=== PATIENT | female | born 1970 | race African-American/Black ===

== ENCOUNTER 2020-06-15 04:39 | Inpatient (IN) | payer OTHER ==
[2020-06-11 17:29] VITALS: BMI 22.6
[2020-06-15] MEDS ORDERED: CEFAZOLIN 1 GM in DEXTROSE 5%-WATER - 50 ML IVPB ONE (07:00)
[2020-06-15] MEDS ORDERED: ROCURONIUM BROMIDE 50 MG/5 ML SYRINGE ONE (07:09)
[2020-06-15] MEDS ORDERED: fentaNYL CITRATE 250 MCG/5 ML VIAL ONE (07:09)
[2020-06-15] MEDS ORDERED: MIDAZOLAM HCL 2 MG/2 ML SINGLE DOSE VIAL ONE ×2 (07:10)
[2020-06-15] MEDS ORDERED: PROPOFOL 20 ML ONE (07:10)
[2020-06-15] MEDS ORDERED: SEVOFLURANE 250 ML BTL ONE (07:11)
[2020-06-15] MEDS ORDERED: BUPIVACAINE HCL/PF 0.25% (2.5MG/ML) 10 ML VIAL ONE (07:13)
[2020-06-15] MEDS ORDERED: BUPIVACAINE LIPOSOME/PF (EXPAREL) 266 MG/20 ML VIAL ONE (07:13)
[2020-06-15] MEDS ORDERED: ceFAZolin SODIUM 1 GM VIAL ONE ×2 (07:21→08:29)
[2020-06-15] MEDS ORDERED: HEPARIN NA (PORCINE) 5,000 UNITS/ML 1ML VIAL ONE (07:25)
--- NOTE | 2020-06-15 07:50 | HP ---
History & Physical Update - History History: No Change - Physical Physical: No Change - Assessment Assessment: No Change - Plan Plan: No Change (No change in HP)
[2020-06-15] MEDS ORDERED: ceFAZolin 2 GRAM PREMIX BAG IVPB ONE (08:20)
[2020-06-15] MEDS ORDERED: DEXAMETHASONE SOD PHOSPHATE 4 MG/1 ML VIAL ONE (08:29)
[2020-06-15] MEDS ORDERED: GLYCOPYRROLATE 0.2 MG/1 ML VIAL ONE (09:48)
[2020-06-15] MEDS ORDERED: NEOSTIGMINE METHYLSULFATE 0.5 MG/ML - 10 ML MDV ONE (09:48)
[2020-06-15] MEDS ORDERED: ONDANSETRON 4 MG/2 ML VIAL IVPUSH PRN ×5 (10:00→12:34)
[2020-06-15] MEDS ORDERED: SIMETHICONE 80 MG TAB.CHEW (FP) PO PRN ×3 (10:00→12:34)
[2020-06-15] MEDS ORDERED: BISACODYL 5 MG TABLET.DR (FP) PO PRN ×3 (10:00→12:34)
[2020-06-15] MEDS ORDERED: CEFAZOLIN 1 GM/D5W 1 GM/50 ML BAG IVPB SCH ×3 (10:00→18:00)
[2020-06-15] MEDS ORDERED: oxyCODONE HCL 5 MG TABLET PO PRN ×6 (10:00→12:34)
[2020-06-15] MEDS ORDERED: ACETAMINOPHEN 325 MG TABLET (FP) PO PRN ×2 (10:00→11:44)
[2020-06-15] MEDS ORDERED: IBUPROFEN 800 MG/8 ML IJ IVPB PRN ×2 (10:00→11:44)
[2020-06-15] MEDS ORDERED: DOCUSATE SODIUM 100 MG CAPSULE (FP) PO PRN ×3 (10:00→12:34)
[2020-06-15] MEDS ORDERED: LACTATED RINGERS SOLUTION 1,000 ML IV SCH (10:30)
--- NOTE | 2020-06-15 10:31 | OP ---
Operative Note - Note: Operative Date: 06/15/20 Pre-Operative Diagnosis: Leiomyomas Operation: Open abdominal myomectomy Post-Operative Diagnosis: Same as Pre-op Surgeon: Neha Galdamez Machine Brusher: Denia Ash Anesthesiologist/TUMBLE TAILSTOCK TURRET LATHE OPERATOR: Neela Crump Anesthesia: General Specimens Removed: removal of multiple leiomyomas: 10cm anterior, 5cm fundus, 2cm submucosal, 2cm bilateral subserosal Estimated Blood Loss (mls): 500 (ml) Drains, Volume Out (mls): 250 (ml yellow urine) Blood Volume Replaced (mls): 250 (ml cell saver) Fluid Volume Replaced (mls): 1,300 (ml lr) Operative Report Dictated: Yes
[2020-06-15] MEDS: HYDROmorphone HCL CARPU-JECT 2 MG/1 ML DISP.SYRIN IVPUSH PRN ×4 (10:32→11:02)
[2020-06-15] MEDS ORDERED: HYDROmorphone HCl 2 MG/ML VIAL ONE (10:32)
--- NOTE | 2020-06-15 10:32 | SURG ---
Surgery Six Sigma Black Trainer Note Six Sigma Black Trainer: Denia Ash PA-C (Suzy) Date of Service: 06/15/20 Diagnosis: Leiomyomas Procedure: Operation: Open abdominal myomectomy I was present for the entirety of the operative procedure. For further detail, please refer to operative report. Visit type - Case Type Case Type: Scheduled - Emergency Emergency Visit: No - New patient This patient is new to me today: Yes Date on this admission: 06/15/20 - Critical Care Critical Care patient: No
[2020-06-15] MEDS ORDERED: LACTATED RINGERS SOLUTION 1,000 ML/1,000 ML INFUS.BAG IV SCH (11:45)
[2020-06-15] MEDS: IBUPROFEN 800 MG/8 ML IJ IVPB PRN ×2 (15:29→22:36)
[2020-06-15] MEDS: LACTATED RINGERS SOLUTION 1,000 ML IV SCH (15:30)
[2020-06-15] MEDS: CEFAZOLIN 1 GM/D5W 1 GM/50 ML BAG IVPB SCH (18:18)
[2020-06-15 19:41] LABS: HEMATOCRIT 38.5 % (32.4-45.2); HEMOGLOBIN 12.7 GM/dL (10.7-15.3); MCH 30.9 pg (25.7-33.7); MCHC 32.9 g/dl (32.0-36.0); MEAN CELL VOLUME 93.9 fl (80-96); MEAN PLT VOLUME 10.2 fl (7.5-11.1); PLATELET COUNT 149 K/MM3 (134-434); RDW 14.2 % (11.6-15.6); WHITE BLOOD COUNT 12.1 K/mm3 (4.0-10.0)
[2020-06-15 20:05] LABS: CALCIUM 7.9 mg/dL (8.5-10.1); CREATININE 0.7 mg/dL (0.55-1.3); POTASSIUM 4.4 mmol/L (3.5-5.1)
[2020-06-16] MEDS: CEFAZOLIN 1 GM/D5W 1 GM/50 ML BAG IVPB SCH ×2 (02:26→10:16)
[2020-06-16] MEDS: LACTATED RINGERS SOLUTION 1,000 ML IV SCH (02:26)
--- NOTE | 2020-06-16 08:08 | PN ---
Progress Note (short form) - Note Progress Note: Surgery: Pt with some nausea overnight, improved this am. Minimal vaginal bleeding. No CP or SOB Vital Signs Period Temp Pulse Resp BP Sys/Bill Pulse Ox Last 24 Hr 97.4 F-99.5 F 57-98 16-20 111-137/63-83 99-100 Osborn:950ml clear/yellow urine GEN: A&0x3, NAD CV: RRR Lungs; CTA b/l ABD: soft, mild inc tenderness. inc c/d/i LE: no calf tenderness or swelling noted b/l, SCDs in place Laboratory Tests 06/15/20 06/15/20 18:30 18:30 WBC 12.1 H Hgb 12.7 Hct 38.5 Plt Count 149 Sodium 138 Potassium 4.4 Chloride 107 Carbon Dioxide 22 Anion Gap 10 BUN 8.0 Creatinine 0.7 A/p: 49 yo female s/p open abd myomectomy, POD#1 Clears as tolerated OOB ambulate Labs pending cbc/chem Pain medication as needed DVT ppx with SCDs/ambulate and lovenox Osborn removal today D/w Dr. Galdamez
[2020-06-16] MEDS: IBUPROFEN 800 MG/8 ML IJ IVPB PRN (08:11)
[2020-06-16 08:14] LABS: BLOOD UREA NITROGEN 8.4 mg/dL (7-18); CREATININE 0.6 mg/dL (0.55-1.3); POTASSIUM 4.1 mmol/L (3.5-5.1)
--- NOTE | 2020-06-16 08:24 | OP ---
DATE OF OPERATION: 06/15/2020 PREOPERATIVE DIAGNOSIS: Leiomyomatous uterus. OPERATION: Abdominal myomectomy. POSTOPERATIVE DIAGNOSIS: Leiomyomatous uterus. SURGEON: Neha Galdamez MD OPERATORS TEACHER: BERNADETTE Sales ANESTHESIOLOGIST: HEMAL Deluna ANESTHESIA: General. SPECIMEN REMOVED: Multiple myomas, a 10-cm anterior, 5-cm fundal, and 2-cm submucosal as well as 2 bilateral subserosal myomas. ESTIMATED BLOOD LOSS: mL. PREOP: Pt expressed wanting an abdominal myomectomy and not a hysterectomy if possible PROCEDURE: Patient was taken to operating room placed in a supine position. General anesthesia induced, pt was prepped and draped in the usual sterile fashion. Pfannenstiel skin incision was made with scalpel and cautery was used to go through layers of abdominal wall. The rectus muscle was cut transversely as well as the peritoneum was also cut transversely. A large leiomyomatous uterus was removed and noted to be tense with a 10-cm to 11-cm fundal myoma and a 5-cm anterior myoma. Noted to be also some submucosal myomas as well as other subserosal ones. The tourniquet was placed in a clear space of the broad ligament. Pitressin was infiltrated into the serosa of the uterus. A circumferential incision was made around the pedunculated 10- to 11-cm myoma, and myoma was then removed using sharp technique. The uterus was then closed in layers, continuous and locking using 1 Vicryl suture, and then, serosa was then closed using 2-0 V-Loc suture in a continuous fashion. Hemostasis was achieved. Anterior myoma was then removed, approximately 5 cm anteriorly. Pitressin was infiltrated, and cautery was then used to enter the anterior aspect of the uterus. A 5-cm myoma was removed. Another 2-cm myoma was also removed in approximately the submucosal area and was enucleated out. All specimens were submitted for pathology. The anterior aspect of the uterus was then closed in a continuous locking fashion and imbricating fashion using 2-0 V- Loc suture. Attention was then drawn to the serosal ones on the uterus. They were removed using sharp technique using cautery. V-Loc suture was then used to close the serosa of those myomas. Hemostasis was achieved. Interceed was placed on all incisions. Cell Saver was done, and patient had a blood loss of 500 mL and 250cc of the Cell Saver was given to patient. Hemostasis was achieved. Uterus interiorized. Abdominal cavity cleaned with clean lap pads. The peritoneum was closed in a transverse fashion, continuous, and the muscle was approximated using 0 Vicryl suture. Subcutaneous was closed in layers using 2-0 Vicryl suture, and skin was then closed using 3-0 Vicryl in subcuticular fashion. Wound was washed and dressed. Patient tolerated procedure well and was taken to the recovery room in stable condition. Segundo DE [id number]
--- NOTE | 2020-06-16 08:30 | PN ---
Progress Note (short form) - Note Progress Note: POD #1 s/p abdominal myomectomy under GA with bilateral TAP blocks. Doing well, pain controlled with current medications, denies n/v. All questions answered.
[2020-06-16 08:48] LABS: HEMATOCRIT 30.4 % (32.4-45.2); HEMOGLOBIN 10.2 GM/dL (10.7-15.3); MCH 30.8 pg (25.7-33.7); MCHC 33.5 g/dl (32.0-36.0); MEAN CELL VOLUME 92.2 fl (80-96); MEAN PLT VOLUME 9.9 fl (7.5-11.1); PLATELET COUNT 136 K/MM3 (134-434); RDW 14.1 % (11.6-15.6); WHITE BLOOD COUNT 9.2 K/mm3 (4.0-10.0)
[2020-06-16] MEDS ORDERED: ENOXAPARIN NA (PORCINE) 40 MG/0.4 ML DISP.SYRIN SQ SCH ×3 (10:00)
--- NOTE | 2020-06-16 14:02 | RAPID ---
<Divine Singh - Last Filed: 06/16/20 14:15> Physical Examination Vital Signs: 98.7 HR 114 RR 18 BP 104/65 O2 99% Upon leaving room HR was down to 100 BMP Constitutional: Yes: Diaphoresis, Mild Distress Cardiovascular: Yes: Tachycardia Respiratory: Yes: CTA Bilaterally Gastrointestinal: Yes: Hematemesis Edema: No Labs: CBC, BMP 06/16/20 07:21 06/16/20 07:21 Rapid Response - Rapid Response Assessment: RR called at 9:38. FILM OR TAPE LIBRARIAN showed up within 2 minutes. Patient had witnessed syncopal event after getting at of bed with her nurse. Patient started to feel light headed & became diaphoretic and RR was called When team got to the room the patient was getting back into bed. Vitals were taken. She was tachycardic, responsive, no SOB. Patient just felt a little light headed still but in bed reported feeling better already. PO day 1 from abdominal myomectomy. This was patient's first time OOB since surgery. PE: General: diaphoertic Cariac: tachy, regular rhythm Lungs: CTA BL Abdomen: tender subprapubic area Legs: No edema BL Laboratory Last Values WBC 9.2 K/mm3 (4.0-10.0) 06/16/20 07:21 RBC 3.30 M/mm3 (3.60-5.2) L 06/16/20 07:21 Hgb 10.2 GM/dL (10.7-15.3) L 06/16/20 07:21 Hct 30.4 % (32.4-45.2) L D 06/16/20 07:21 MCV 92.2 fl (80-96) 06/16/20 07:21 MCH 30.8 pg (25.7-33.7) 06/16/20 07:21 MCHC 33.5 g/dl (32.0-36.0) 06/16/20 07:21 RDW 14.1 % (11.6-15.6) 06/16/20 07:21 Plt Count 136 K/MM3 (134-434) 06/16/20 07:21 MPV 9.9 fl (7.5-11.1) 06/16/20 07:21 Sodium 139 mmol/L (136-145) 06/16/20 07:21 Potassium 4.1 mmol/L (3.5-5.1) 06/16/20 07:21 Chloride 107 mmol/L (98-107) 06/16/20 07:21 Carbon Dioxide 25 mmol/L (21-32) 06/16/20 07:21 Anion Gap 7 MMOL/L (8-16) L 06/16/20 07:21 BUN 8.4 mg/dL (7-18) 06/16/20 07:21 Creatinine 0.6 mg/dL (0.55-1.3) 06/16/20 07:21 Est GFR (CKD-EPI)AfAm 122.32 06/16/20 07:21 Est GFR (CKD-EPI)NonAf 105.54 06/16/20 07:21 POC Glucometer 174 UNITS (80-120) 06/16/20 09:47 Random Glucose 132 mg/dL (74-106) H 06/16/20 07:21 Calcium 8.0 mg/dL (8.5-10.1) L 06/16/20 07:21 Serum , Qual Negative 06/15/20 06:15 Blood Type O POSITIVE 06/16/20 08:32 Antibody Screen Negative 06/16/20 08:32 Assessment/Plan Orthostatic hypotension - patient post op day 1 abdominal myomectomy - hbg/hct stable - BGM 174 - light headed and tachy after getting up walking to bathroom - patient better with rest - Continue fluids, OOB with assistance - no further work up at this time <Dolly Miranda - Last Filed: 07/07/20 21:03> Physical Examination Vital Signs: Vital Signs Temperature 98.6 F 06/22/20 13:01 Pulse Rate 92 H 06/22/20 13:01 Respiratory Rate 18 06/22/20 13:01 Blood Pressure 112/78 06/22/20 13:01 O2 Sat by Pulse Oximetry (%) 99 06/22/20 13:01 Labs: CBC, BMP 06/21/20 17:25 06/20/20 05:35 Critical Care Total Critical Care Time (in minutes): 30 Critical Care Statement: The care of this patient involved high complexity decision making to prevent further life threatening deterioration of the patient's condition and/or to evaluate & treat vital organ system(s) failure or risk of failure.
[2020-06-16] MEDS: ACETAMINOPHEN 325 MG TABLET (FP) PO PRN ×2 (15:55→21:24)
--- NOTE | 2020-06-16 16:38 | PN ---
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 States when she went to get up from the commode she felt extremely dizzy/light- headed/weak. RN notified for help and notes states patient became diaphoretic. Helped patient back to her bed and called for a Rapid Response at 09:38AM. She is responsive per notes. Vitals taken at that time noted to be tachycardic. Denied CP, palpitations, SOB or HILL prior too or post event. Called by patient's RN as she is now c/o substernal chest pain radiating to LUE after being administered oral pain medication. 16:15hrs Patient supine in bed. Not in any distress. Endorses substernal CP (not reproducible), radiates to left shoulder. Denies n/v, diaphoresis, palpitations, SOB or HILL. Last Vital Signs Temp Pulse Resp BP Pulse Ox 99.0 F 107 H 18 111/74 99 06/16/20 13:57 06/16/20 16:03 06/16/20 16:03 06/16/20 16:03 06/16/20 16:03 A/P: POD #1 s/p open abd myomectomy; Witnessed syncopal episode earlier today; now c/o substernal CP radiating to left shoulder. 1. STAT: EKG, Cardiac Enzymes, CBC 2. Cardio consult - Dr. Robison 3. Medicine consult - Dr. Mace 4. Dr. Galdamez made aware and agrees with above plan
--- NOTE | 2020-06-16 17:25 | PN ---
Teaching Attending Note Name of Resident: Jamaal Hawthorne ATTENDING PHYSICIAN STATEMENT I saw and evaluated the patient. I reviewed the resident's note and discussed the case with the resident. I agree with the resident's findings and plan as documented. SUBJECTIVE: We were requested by Surgery service to see this 49 year old AAF with no sign ificant past medical history who is sp open abdominal myomectomy for leiomyomas for evaluation of chest pains. Patient reports she was seated next to her bed when she developed sudden onset left sided chest pains with radiation to the left arm, described as sharp, 9/10 in intensity and lasting about 20 minutes and after which, slowly faded away. She denied diaphoresis, nausea nor vomiting. She has not had any experience like this prior to this event On evaluation of EKG, there are T wave inversions in the anterior leads from V1- V4, previously not seen on preop EKG OBJECTIVE: Gen appears comfortable neck; supple HEENT: EOMO Chest: clear to auscultation CVS: RRR abd: soft, minimal bowel sounds, slightly distended but not taut. Negative fluid wave. Exam limited by tenderness Ext; no edema, feet are warm and dry pooling operator; no motor nor sensory deficit ASSESSMENT AND PLAN: 1. Chest pains - on review of labs, hct dropped from 38 to 30 - may be from acute blood loss - EKG with change as above - will need remote telemetry monitoring or tele bed for continuous cardiac monitoring - serial troponins - echocardiogram - cardiology consultation in the am (Dr Robison already informed of consu ltation by surgery service) - repeat hct in am 2. DVT prophylaxis - SCDs and also wearing enrique hoses 3. Patient is Gnosticism Thank you for the oppportunity to participate in the care of this patient. We will follow along. DW Dr Hawthorne. Agree with exam, history, plans of care
[2020-06-16 17:39] LABS: HEMATOCRIT 27.6 % (32.4-45.2); HEMOGLOBIN 9.4 GM/dL (10.7-15.3); MCH 31.6 pg (25.7-33.7); MCHC 33.9 g/dl (32.0-36.0); MEAN CELL VOLUME 93.1 fl (80-96); MEAN PLT VOLUME 9.5 fl (7.5-11.1); PLATELET COUNT 125 K/MM3 (134-434); RBC 2.97 M/mm3 (3.60-5.2); RDW 14.2 % (11.6-15.6); WHITE BLOOD COUNT 9.5 K/mm3 (4.0-10.0)
--- NOTE | 2020-06-16 18:03 | HOSP ---
Subjective - Review of Symptoms Events since last encounter: 49F w/ no reported PMH, is POD#1 for open myometcomy(Denice 06/16/20) w/ EBL 500ml. [facility] consulted for chest pain w/u. Pt reported Left shoulder pain that was sharp in nature, radiating behind the breast at ~4pm, while at sitting in her chair, shortly after taking medications(colace, acetaminophen). Pain lasted ~20mins, with 10mins of rapid breathing; describing as trouble catching her breath. This lasted 10mins. Denies chest pressure, palpitations. Has not had simliar symptoms in the past. Prior to surgery, had regular home exercise, doing 30mins of body squats, bands, and jogging in place. Never smoked. Never had IA, stroke, cardiac cath. Mother has diabetes(on ACTOS). No FH of cardiac disease. General: No: Fatigue HEENT: No: Head Aches Pulmonary: No: Dyspnea, Cough, Pleuritic Chest Pain Cardiovascular: No: Chest Pain, Palpitations, Light Headedness Gastrointestinal: No: Vomiting, Abdominal Pain, Diarrhea, Constipation Musculoskeletal: No: Back Pain Neurological: No: Weakness, Numbness Physical Examination Vital Signs: Vital Signs Temperature 99.0 F 06/16/20 13:57 Pulse Rate 107 H 06/16/20 16:03 Respiratory Rate 18 06/16/20 16:03 Blood Pressure 111/74 06/16/20 16:03 O2 Sat by Pulse Oximetry (%) 99 06/16/20 16:03 Constitutional: Yes: Well Nourished, No Distress Eyes: Yes: Conjunctiva Clear (pale conjunctiva) HENT: Yes: WNL, Atraumatic, Normocephalic Neck: Yes: WNL, Supple, Trachea Midline, Other (no JVD) Cardiovascular: Yes: Tachycardia, S1, S2. No: Murmur Respiratory: Yes: Regular, CTA Bilaterally. No: Accessory Muscle Use Gastrointestinal: Yes: Soft, Tenderness (over lower transverse abdominal incision). No: Distention Extremities: Yes: Other (normal PROM, AROM. No tenderness over should muscles or bony prominences) Edema: No Peripheral Pulses: Left Doralis Pedis: 2+, Right Dorsalis Pedis: 2+ Wound/Incision: Yes: Dressing Dry and Intact Neurological: Yes: Alert, Oriented, Cran Nerves II-XII Intact ...Motor Strength: WNL Labs: CBC, BMP 06/16/20 17:00 Hospitalist Encounter Assessment: 49F w/ no significant PMH, has shoulder pain and SOB on POD#1 of open myomectomy. Patient refusing blood for personal reasons. [facility] consulted for Chest Pain workup. #atypical chest pain --unlikely ACS > HEART 2 > EKG(06/16/20): TWI of V1 -V4, no BRANDIE; HR 103, QTc 424 > rpt EKG for 06/17 - recommend transfer for Telemetry monitoring - recommend Echo - troponin --pending - Cardio recs: --pending #acute blood loss anemia --likely 2/2 surgical blood loss > H/H: 15.2/46.2([facility] pre-op from 06/08/20), 12.7/38.5, 10.2/30.4, 9.4/27.6 - monitor morning CBC Visit type - Emergency Visit Emergency Visit: No - New Patient This patient is new to me today: Yes Date on this admission: 06/16/20 - Critical Care Critical Care patient: No
[2020-06-16 18:15] LABS: ANION GAP 8 MMOL/L (8-16); CALCIUM 8.2 mg/dL (8.5-10.1); CHLORIDE 107 mmol/L (98-107); CO2 25 mmol/L (21-32); CREATININE 0.6 mg/dL (0.55-1.3); GLUCOSE,RANDOM 120 mg/dL (74-106); PHOSPHOROUS 1.7 mg/dL (2.5-4.9); POTASSIUM 3.8 mmol/L (3.5-5.1); SODIUM 140 mmol/L (136-145)
[2020-06-16] MEDS: NAPH,MB-DB/K PH,MBDB POWDER PACKET PO SCH (21:24)
--- NOTE | 2020-06-17 05:34 | CON.CARD ---
Consult Consult Specialty:: cardiology Reason for Consultation:: lightheadedness; chest pain; new EKG changes - History of Present Illness Chief Complaint: Pt A&Ox3; no further chest pain or dizziness. History of Present Illness: Ms. Feliciano is a 49 yr old woman with no known significant PMHx is now transferred to telemetry after developing lightheadedness followed by sharp chest pain after undergoing open abdominal myomectomy for leiomyoma today. Hb was noted to have decreased from 12.7 to 9.4. Pt was exercising regularly prior to the surgery, and denies having had chest pain before. No hx cigarettes. - History Source History Provided By: Patient, Medical Record Limitations to Obtaining History: No Limitations - Past Medical History ...LMP: 05/05/20 Heme/Onc: Yes: Anemia - Alcohol/Substance Use Hx Alcohol Use: Yes (SOCIALLY) - Smoking History Smoking history: Never smoked Have you smoked in the past 12 months: No Home Medications - Allergies Allergies/Adverse Reactions: Allergies Allergy/AdvReac Type Severity Reaction Status Date / Time clindamycin Allergy Intermediate Verified 06/15/20 07:18 CLINDAMYCIN Allergy Intermediate COLITIS Uncoded 06/15/20 07:18 WHEAT GLUTEN Allergy Mild Uncoded 06/15/20 07:18 - Home Medications Home Medications: Ambulatory Orders Amoxicillin - [Amoxicillin 500mg Capsule -] 500 mg PO BID 06/11/20 Family Medical History Family History: Denies Review of Systems - Review of Systems Constitutional: reports: Weakness Eyes: reports: No Symptoms HENT: reports: No Symptoms Neck: reports: No Symptoms Cardiovascular: reports: Chest Pain Respiratory: reports: No Symptoms Gastrointestinal: reports: Abdominal Pain Genitourinary: reports: No Symptoms Breasts: reports: No Symptoms Reported Musculoskeletal: reports: Muscle Pain, Other Integumentary: reports: Incision Neurological: reports: No Symptoms Endocrine: reports: No Symptoms Hematology/Lymphatic: reports: Other (anemia post-op) Psychiatric: reports: No Symptoms - Risk Factors Known Risk Factors: Yes: Age, Race Vital Signs: Vital Signs Temperature 98.9 F 06/17/20 02:00 Pulse Rate 106 H 06/17/20 02:00 Respiratory Rate 18 06/17/20 02:00 Blood Pressure 105/59 L 06/17/20 02:00 O2 Sat by Pulse Oximetry (%) 100 06/17/20 02:00 Laboratory Results - last 24 hr 06/17/20 06/18/20 06/18/20 20:45 05:48 05:48 WBC 9.2 9.2 RBC 2.62 L 2.57 L Hgb 8.3 L 8.0 L Hct 24.4 L 23.6 L MCV 93.2 91.8 MCH 31.8 31.1 MCHC 34.2 33.9 RDW 13.6 13.5 Plt Count 105 L 111 L MPV 9.5 9.1 Sodium 141 Potassium 3.7 Chloride 108 H Carbon Dioxide 27 Anion Gap 7 L BUN 5.0 L Creatinine 0.5 L Est GFR (CKD-EPI)AfAm 129.88 Est GFR (CKD-EPI)NonAf 112.06 Random Glucose 93 Calcium 7.8 L Phosphorus 1.3 L Total Bilirubin 0.6 AST 46 H ALT 16 Alkaline Phosphatase 46 Total Protein 5.4 L Albumin 2.5 L Blood Type 06/18/20 10:48 WBC RBC Hgb Hct MCV MCH MCHC RDW Plt Count MPV Sodium Potassium Chloride Carbon Dioxide Anion Gap BUN Creatinine Est GFR (CKD-EPI)AfAm Est GFR (CKD-EPI)NonAf Random Glucose Calcium Phosphorus Total Bilirubin AST ALT Alkaline Phosphatase Total Protein Albumin Blood Type O POSITIVE Constitutional: Yes: Well Nourished Eyes: Yes: WNL HENT: Yes: WNL Neck: Yes: WNL Respiratory: Yes: WNL Gastrointestinal: Yes: WNL Renal/: Yes: WNL Cardiovascular: Yes: Tachycardia JVD: No Carotid Bruit: No PMI: Non-Displaced Heart Sounds: Yes: S1, S2 Musculoskeletal: Yes: Muscle Pain, Muscle Weakness Extremities: Yes: WNL Edema: No Peripheral Pulses WNL: Yes Integumentary: Yes: Incision Neurological: Yes: WNL ...Motor Strength: WNL Psychiatric: Yes: WNL - Other Data Labs, Other Data: CBC, BMP 06/16/20 17:00 06/16/20 17:00 Troponin, BNP 06/16/20 06/16/20 17:00 23:40 Troponin I < 0.02 < 0.02 Troponin, BNP 06/16/20 06/16/20 17:00 23:40 Troponin I < 0.02 < 0.02 Abnormal Lab Results 06/17/20 06/18/20 06/18/20 20:45 05:48 05:48 RBC 2.62 L 2.57 L Hgb 8.3 L 8.0 L Hct 24.4 L 23.6 L Plt Count 105 L 111 L Chloride 108 H Anion Gap 7 L BUN 5.0 L Creatinine 0.5 L Calcium 7.8 L Phosphorus 1.3 L AST 46 H Total Protein 5.4 L Albumin 2.5 L Echo: Pending Imaging - Results Chest X-ray: Image Reviewed EKG: Image Reviewed Assessment/Plan Lightheadedness and sharp chest pain post-myomectomy for leiomyoma acute anemia (Hb 12.7-->9.4) New EKG changes: sinus tachycardia; T wave inversions throughout precordial leads; r/o ischemia Hypocalcemia; hypophosphatemia TNI < 0.02 Plan: Transfer to telemetry Serial TNI and EKGs Hydration Pain management Correction of electrolytes TSH Lipids HGBA1c
[2020-06-17 07:15] LABS: BASO % 0.1 % (0-2.0); EOS % 0.3 % (0-4.5); HEMATOCRIT 22.1 % (32.4-45.2); HEMOGLOBIN 7.5 GM/dL (10.7-15.3); LYMPH % 12.8 % (8-40); MCH 31.2 pg (25.7-33.7); MCHC 34.1 g/dl (32.0-36.0); MEAN CELL VOLUME 91.5 fl (80-96); MEAN PLT VOLUME 9.8 fl (7.5-11.1); MONO % 11.8 % (3.8-10.2); PLATELET COUNT 112 K/MM3 (134-434); RBC 2.41 M/mm3 (3.60-5.2); RDW 14.1 % (11.6-15.6); WHITE BLOOD COUNT 8.4 K/mm3 (4.0-10.0)
[2020-06-17 07:32] LABS: CHOLESTEROL 119 mg/dL (50-200); HDL CHOLESTEROL 42 mg/dL (40-60); LDL CHOLESTEROL (ONLY SJRH) 57 mg/dL (5-100); TRIGLYCERIDES 68 mg/dL (0-150)
[2020-06-17 07:35] LABS: CALCIUM 7.8 mg/dL (8.5-10.1); CREATININE 0.5 mg/dL (0.55-1.3); POTASSIUM 3.5 mmol/L (3.5-5.1)
[2020-06-17] MEDS ORDERED: PT OWN MED DRAWER 7, Y5N ONE (09:20)
--- NOTE | 2020-06-17 09:21 | PN ---
Progress Note (short form) - Note Progress Note: POD 2, s/p open abdominal myomectomy Pt seen and examined. States she is doing well, continues to have L chest/left shoulder pain. Has not been oob. Tolerating small amounts of clear liquids. No BM, voiding without issue. Denies sob, n/v/d. Vital Signs Temp 99 F 06/17/20 06:00 Pulse 107 H 06/17/20 06:00 Resp 18 06/17/20 06:00 BP 102/58 L 06/17/20 06:00 Pulse Ox 98 06/17/20 06:00 Intake & Output 06/16/20 06/16/20 06/17/20 11:59 23:59 11:59 Intake Total 1500 Output Total 1200 1150 Balance 300 -1150 Intake: IV 1200 Lactated Ringers Solution 1200 1,000 ml @ 125 mls/hr IV ASDIR CURTIS Rx#: [id number] IVPB 300 Output: Urine 1200 1150 Osborn 400 Void 800 1150 Other: Voiding Method Bedpan Bedpan # Unmeasured Voids Void 1 1 Bowel Movement No No CBC, BMP 06/17/20 05:48 06/17/20 05:48 Gen: awake, alert, nad Resp: unlabored on RA Abdo: soft, minimally distended, + bowel sounds, incision c/d/i with steri- strips overlying, no erythema or drainage. A/P: 49 y/o F w/ PMhx leiomyomas now POD 2, s/p open abdominal myomectomy complicated by acute blood loss anemia. pt persistently tachy to 120s, hypotensive to low 100s, asx per pt. Hct continues to trend down, 22 currently Extensive conversation between pt and attending Dr Galdamez regarding current situation. Pt symptomatic from acute blood loss anemia (hct prior to surgery was 42-no h/o menorrhagia per pt) requiring transfer to telemetry unit due to syncope/chest pain. Options/risks/benefits discussed at length. Pt hesitant to receive blood transfusion for fear of transmission of communicable diseases. Blood screening and risks discussed with pt at length, pt verbalized understanding. Agrees to transfusion. Consent signed and placed on chart after risks discussed. Type and screen ordered (only 1 on file). -3 units pRBCs ordered -Lovenox d/c'ed will order heparin 5000units sq for tonight -pain control as ordered (pt very comfortable with current regimen) -Diet as tolerated -Continue to monitor vs -continue scds -bowel regimen -oob with assist only pt seen with attending Dr Galdamez
--- NOTE | 2020-06-17 09:23 | PN ---
Progress Note, Physician History of Present Illness: Ms. Feliciano is a 49 yr old woman with no known significant PMHx is now transferred to telemetry after developing lightheadedness followed by sharp chest pain after undergoing open abdominal myomectomy for leiomyoma today. Hb was noted to have decreased from 12.7 to 9.4. Pt was exercising regularly prior to the surgery, and denies having had chest pain before. No hx cigarettes. - Current Medication List Current Medications: Active Medications Acetaminophen (Tylenol -) 650 mg PO Q4H PRN PRN Reason: FEVER Last Admin: 06/16/20 21:24 Dose: 650 mg Documented by: Ascorbic Acid (Vitamin C -) 250 mg PO DAILY [facility] Bisacodyl (Dulcolax -) 10 mg PO ONCE PRN PRN Reason: CONSTIPATION Last Admin: 06/16/20 14:18 Dose: 10 mg Documented by: Docusate Sodium (Colace -) 100 mg PO TID PRN PRN Reason: CONSTIPATION Last Admin: 06/16/20 15:55 Dose: 100 mg Documented by: Ferrous Sulfate (Feosol -) 325 mg PO DAILY [facility] Lactated Ringer's (Lactated Ringers Solution) 1,000 mls @ 125 mls/hr IV ASDIR [facility] Last Admin: 06/16/20 02:26 Dose: 125 mls/hr Documented by: Ondansetron HCl (Zofran Injection) 4 mg IVPUSH Q4H PRN PRN Reason: NAUSEA AND/OR VOMITING Last Admin: 06/15/20 22:01 Dose: 4 mg Documented by: Ondansetron HCl (Zofran Injection) 4 mg IVPUSH Q6H PRN PRN Reason: NAUSEA AND/OR VOMITING Oxycodone HCl (Roxicodone -) 5 mg PO Q4H PRN PRN Reason: PAIN LEVEL 1-5 Oxycodone HCl (Roxicodone -) 10 mg PO Q4H PRN PRN Reason: PAIN LEVEL 6-10 Potassium Phos/Sodium Phos (Phos-Nak Packet -) 1 packet PO BID [facility] Stop: 06/17/20 10:01 Last Admin: 06/16/20 21:24 Dose: 1 packet Documented by: Potassium Phos/Sodium Phos (Phos-Nak Packet -) 1 packet PO DAILY [facility] Simethicone (Mylicon -) 80 mg PO Q4H PRN PRN Reason: GAS - Objective Vital Signs: Vital Signs Temperature 99 F 06/17/20 06:00 Pulse Rate 107 H 06/17/20 06:00 Respiratory Rate 18 06/17/20 06:00 Blood Pressure 102/58 L 06/17/20 06:00 O2 Sat by Pulse Oximetry (%) 98 06/17/20 06:00 Eyes: Yes: WNL, Conjunctiva Clear, EOM Intact HENT: Yes: WNL, Atraumatic, Normocephalic Neck: Yes: WNL, Supple, Trachea Midline Cardiovascular: Yes: WNL, Regular Rate and Rhythm Respiratory: Yes: WNL, Regular, CTA Bilaterally Gastrointestinal: Yes: WNL, Normal Bowel Sounds Genitourinary: Yes: WNL Musculoskeletal: Yes: WNL Extremities: Yes: WNL Edema: No Integumentary: Yes: WNL Neurological: Yes: WNL, Alert, Oriented ...Motor Strength: WNL Psychiatric: Yes: WNL Labs: CBC, BMP 06/17/20 05:48 06/17/20 05:48 Assessment/Plan Lightheadedness and sharp chest pain post-myomectomy for leiomyoma acute anemia (Hb 12.7-->9.4) New EKG changes: sinus tachycardia; T wave inversions throughout precordial leads; r/o ischemia Hypocalcemia; hypophosphatemia TNI < 0.02 ECHO nl EF Plan: PRBC Serial TNI and EKGs Hydration Pain management Correction of electrolytes TSH Lipids HGBA1c MIBI stress test prior to discharge
[2020-06-17] MEDS: ASCORBIC ACID 250 MG TABLET (FP) PO SCH (09:39)
[2020-06-17] MEDS: FERROUS SO4 325 MG TABLET (FP) PO SCH (09:39)
[2020-06-17] MEDS: NAPH,MB-DB/K PH,MBDB POWDER PACKET PO SCH ×2 (09:39→17:43)
[2020-06-17] MEDS: LACTATED RINGERS SOLUTION 1,000 ML IV SCH ×2 (09:39→19:00)
[2020-06-17] MEDS ORDERED: DOCUSATE SODIUM 100 MG CAPSULE (FP) PO PRN (10:02)
[2020-06-17] MEDS ORDERED: ONDANSETRON 4 MG/2 ML VIAL IVPUSH PRN ×2 (10:02)
[2020-06-17] MEDS ORDERED: SIMETHICONE 80 MG TAB.CHEW (FP) PO PRN (10:02)
[2020-06-17] MEDS ORDERED: oxyCODONE HCL 5 MG TABLET PO PRN ×2 (10:02)
[2020-06-17] MEDS ORDERED: ACETAMINOPHEN 325 MG TABLET (FP) PO PRN (10:02)
[2020-06-17] MEDS ORDERED: BISACODYL 5 MG TABLET.DR (FP) PO PRN (10:02)
--- NOTE | 2020-06-17 13:15 | PN ---
Physical Exam: SUBJECTIVE: Patient seen and examined at bedside POD#2 s/p open abdominal myomectomy Patient found to have chest pain and underwent full ischemic heart work up. H/H low and we recommend transfusion of PRBC. Patient agrees to receiving PRBC OBJECTIVE: Vital Signs Period Temp Pulse Resp BP Sys/Bill Pulse Ox Last 24 Hr 98.8 F-99.0 F 94-107 18-18 102-114/58-76 98-100 GENERAL: The patient is awake, alert, and fully oriented, in no acute distress. LUNGS: Breath sounds equal, clear to auscultation bilaterally, no wheezes, no crackles, no accessory muscle use. HEART: Regular rate and rhythm, S1, S2 without murmur, rub or gallop. ABDOMEN: Soft, with bowel sounds in all 4 quadrants, transverse abdominal incision bandage noted EXTREMITIES: 2+ pulses, warm, well-perfused, no edema. SKIN: Warm, dry, normal turgor, no rashes or lesions noted Laboratory Results - last 24 hr 06/16/20 06/16/20 06/16/20 08:32 17:00 17:00 WBC 9.5 RBC 2.97 L Hgb 9.4 L Hct 27.6 L MCV 93.1 MCH 31.6 MCHC 33.9 RDW 14.2 Plt Count 125 L MPV 9.5 Absolute Neuts (auto) Neutrophils % Lymphocytes % Monocytes % Eosinophils % Basophils % Nucleated RBC % Sodium 140 Potassium 3.8 Chloride 107 Carbon Dioxide 25 Anion Gap 8 BUN 7.0 Creatinine 0.6 Est GFR (CKD-EPI)AfAm 122.32 Est GFR (CKD-EPI)NonAf 105.54 Random Glucose 120 H Hemoglobin A1c % Calcium 8.2 L Phosphorus 1.7 L Magnesium 2.0 Creatine Kinase 1393 H Creatine Kinase Index No Result Required. CK-MB (CK-2) < 1.0 Troponin I < 0.02 Triglycerides Cholesterol Total LDL Cholesterol HDL Cholesterol TSH Thyroxine (T4) Blood Type O POSITIVE Antibody Screen Negative Crossmatch See Detail 06/16/20 06/17/20 06/17/20 23:40 05:48 05:48 WBC RBC Hgb Hct MCV MCH MCHC RDW Plt Count MPV Absolute Neuts (auto) Neutrophils % Lymphocytes % Monocytes % Eosinophils % Basophils % Nucleated RBC % Sodium 140 Potassium 3.5 Chloride 107 Carbon Dioxide 27 Anion Gap 6 L BUN 7.0 Creatinine 0.5 L Est GFR (CKD-EPI)AfAm 129.88 Est GFR (CKD-EPI)NonAf 112.06 Random Glucose 95 Hemoglobin A1c % Calcium 7.8 L Phosphorus 2.0 L Magnesium 2.0 Creatine Kinase 1362 H Creatine Kinase Index No Result Required. CK-MB (CK-2) < 1.0 Troponin I < 0.02 < 0.02 Triglycerides 68 Cholesterol 119 Total LDL Cholesterol 57 HDL Cholesterol 42 TSH 0.25 L Thyroxine (T4) 9.4 Blood Type Antibody Screen Crossmatch 06/17/20 06/17/20 05:48 05:48 WBC 8.4 RBC 2.41 L Hgb 7.5 L Hct 22.1 L D MCV 91.5 MCH 31.2 MCHC 34.1 RDW 14.1 Plt Count 112 L MPV 9.8 Absolute Neuts (auto) 6.3 Neutrophils % 75.0 Lymphocytes % 12.8 Monocytes % 11.8 H Eosinophils % 0.3 Basophils % 0.1 Nucleated RBC % 0 Sodium Potassium Chloride Carbon Dioxide Anion Gap BUN Creatinine Est GFR (CKD-EPI)AfAm Est GFR (CKD-EPI)NonAf Random Glucose Hemoglobin A1c % < 3.5 L Calcium Phosphorus Magnesium Creatine Kinase Creatine Kinase Index CK-MB (CK-2) Troponin I Triglycerides Cholesterol Total LDL Cholesterol HDL Cholesterol TSH Thyroxine (T4) Blood Type Antibody Screen Crossmatch Active Medications Generic Name Dose Route Start Last Admin Trade Name Freq PRN Reason Stop Dose Admin Acetaminophen 650 mg 06/17/20 10:02 Tylenol - PO Q4H PRN FEVER Ascorbic Acid 250 mg 06/17/20 10:00 06/17/20 09:39 Vitamin C - PO 250 mg DAILY [facility] Administration Bisacodyl 10 mg 06/17/20 10:02 Dulcolax - PO ONCE PRN CONSTIPATION Docusate Sodium 100 mg 06/17/20 10:02 Colace - PO TID PRN CONSTIPATION Ferrous Sulfate 325 mg 06/17/20 10:00 06/17/20 09:39 Feosol - PO 325 mg DAILY [facility] Administration Lactated Ringer's 1,000 mls @ 125 mls/hr 06/17/20 09:24 06/17/20 09:39 Lactated Ringers Solution IV 125 mls/hr ASDIR [facility] Administration Ondansetron HCl 4 mg 06/17/20 10:02 Zofran Injection IVPUSH Q4H PRN NAUSEA AND/OR VOMITING Ondansetron HCl 4 mg 06/17/20 10:02 Zofran Injection IVPUSH Q6H PRN NAUSEA AND/OR VOMITING Oxycodone HCl 5 mg 06/17/20 10:02 Roxicodone - PO Q4H PRN PAIN LEVEL 1-5 Oxycodone HCl 10 mg 06/17/20 10:02 Roxicodone - PO Q4H PRN PAIN LEVEL 6-10 Potassium Phos/Sodium Phos 1 packet 06/17/20 16:00 Phos-Nak Packet - PO DAILY [facility] Simethicone 80 mg 06/17/20 10:02 Mylicon - PO Q4H PRN GAS ASSESSMENT/PLAN: Ms. Braden Hart is a 49F consulted for a cardiac workup for chest pain after myomectomy procedure. #Chest Pain - r/o ACS as cause of chest pain - negative trops x3 - Serial EKG negative for ischemic changes - recommend outpatient echo for further cardiac work up - Telemetry monitoring - likely a result of blood loss - Recommendations for blood transfusions to baseline H/H - will follow H/H - Cardiology on board - appreciate the recommendations #Anemia: - blood loss anemia - recommendations of PRBC x1 - follow H/H - Follow calcium levels as prbc contain citrate which, in turn, would bind calcium ions in the serum Visit type - Emergency Visit Emergency Visit: No - New Patient This patient is new to me today: Yes Date on this admission: 06/17/20 - Critical Care Critical Care patient: No - Discharge Referral Referred to [facility] Med P.C.: No ATTENDING PHYSICIAN STATEMENT I saw and evaluated the patient. I reviewed the resident's note and discussed the case with the resident. I agree with the resident's findings and plan as documented. SUBJECTIVE: OBJECTIVE: ASSESSMENT AND PLAN:
--- NOTE | 2020-06-17 13:44 | PN ---
Teaching Attending Note Name of Resident: Leoncio Valdes ATTENDING PHYSICIAN STATEMENT I saw and evaluated the patient. I reviewed the resident's note and discussed the case with the resident. I agree with the resident's findings and plan as documented. SUBJECTIVE: Patient states she feels well, no longer with any chest discomfort She is fixated on having her Hb rechecked so she can avoid blood transfusion and possibly go home OBJECTIVE: Vital Signs Period Temp Pulse Resp BP Sys/Bill Pulse Ox Last 24 Hr 98.8 F-99.0 F 94-107 18-18 102-114/58-76 98-100 GENERAL: Awake, alert, No distress. HEAD: Normal with no signs of trauma. EYES: Pupils equal, round and reactive to light, extraocular movements intact, sclera anicteric, conjunctiva clear. No lid lag. EARS, NOSE, THROAT: Ears normal, nares patent, oropharynx clear without exudates. Moist mucous membranes. NECK: Normal range of motion, No JVD LUNGS: Breath sounds equal, clear to auscultation bilaterally. No wheezes, and no crackles. No accessory muscle use. HEART: Regular rate and rhythm, normal S1 and S2 without murmur, rub or gallop. ABDOMEN: Soft, BS+, Bandage noted from surgical incision MUSCULOSKELETAL: Normal range of motion at all joints. No bony deformities or tenderness. No CVA tenderness. NEUROLOGICAL: Cranial nerves II-XII intact. Normal speech. PSYCHIATRIC: Cooperative. Good eye contact. Appropriate mood and affect. SKIN: Warm, dry, normal turgor, no rashes or lesions noted. ASSESSMENT AND PLAN: 49 y/o F who presents for myomectomy s/p OR. Medicine consulted for Chest pain Chest Pain: Unlikely ACS: Troponin Negative, no signs of acute ischemia on EKG Continue tele monitor Can consider outpatient Echo--defer to Cardiology recs Can be due to recent blood loss anemia, transfuse as noted below. Anemia: Likely in setting of blood loss. Patient apprehensive about receiving transfusion. Recommended to patient that she receive atleast one unit at this time Rest of plan/management as per resident note/primary team
--- NOTE | 2020-06-17 14:24 | PATH ---
Surgical Pathology Report Patient Name: MARKY PINEDA [facility]. Rec. #: [id number] /Age/Gender: 1970 (Age: 49) / F Account: [id number] Location: 4 SO PEDS/ADOL Taken: 06/15/2020 Received: 06/15/2020 Reported: 06/17/2020 Physicians: Neha Galdamez M.D. Specimen(s) Received FIBROIDS Clinical History Leiomyomatous uterus Final Diagnosis FIBROIDS, ABDOMINAL MYOMECTOMY: 967 G, LEIOMYOMA(TA), WITH FOCAL CALCIFICATIONS. Electronically Signed Belem Rowe M.D. Gross Description Received in formalin labeled "fibroids," is a 967 g aggregate of 5 coreas, firm to rubbery nodules, consistent with fibroids. The nodules range from 3.2-12.0 cm in greatest dimension. Sectioning reveals coreas, firm to rubbery parenchyma with whorled architecture. No areas of hemorrhage or necrosis are identified. [employer] sections are submitted in 8 cassettes as follows: 1-2-smaller fibroids; 3-8-largest fibroid. DL/06/16/2020 saudi/06/16/2020
--- NOTE | 2020-06-17 14:43 | ECHO ---
Version: 1 Name: MARKY PINEDA Exam: Adult Echocardiogram Study Date: 06/17/2020, 1:32 PM Age: 49 Years MMode/2D Measurements & Calculations IVSd: 0.82 cm LVIDs: 2.09 cm LVIDd: 3.8 cm LVPWd: 0.75 cm LAV (MOD-bp): 33.0 ml ACS: 1.32 cm Ao root diam: 2.6 cm LVOT diam: 1.78 cm LA dimension: 3.3 cm Doppler Measurements & Calculations MV E max lobo: 73.5 cm/sec Med E/e': 9.6 MV A max lobo: 82.4 cm/sec Med Peak E' Lobo: 7.7 cm/sec MV E/A: 0.89 Lat E/e': 6.1 Lat Peak E' Lobo: 12.1 cm/sec Ao max P.7 mmHg SABRINA(I,D): 2.5 cm Ao mean P.4 mmHg LV V1 mean: 69.2 cm/sec Ao V2 max: 129.0 cm/sec LV V1 mean P.36 mmHg TR max lobo: 152.0 cm/sec TR max P.3 mmHg Left Ventricle The left ventricular size, thickness and function are normal. Ejection Fraction = 70%. The transmitr al spectral Doppler flow pattern is suggestive of impaired LV relaxation. Right Ventricle The right ventricle is normal in size and function. Atria Normal left and right atrial size and function. Mitral Valve The mitral valve is grossly normal. There is no mitral regurgitation noted. Tricuspid Valve The tricuspid valve is not well visualized, but is grossly normal. There is mild tricuspid regurgita tion. Aortic Valve The aortic valve is normal in structure and function. Pulmonic Valve The pulmonic valve is not well seen, but is grossly normal. Mild pulmonic valvular regurgitation. Great Vessels The aortic root is normal size. Normal aortic arch, descending and ascending aorta. Pericardium/Pleura There is no pericardial effusion. Summary Statements The left ventricular size, thickness and function are normal Ejection Fraction = 70%. The transmitral spectral Doppler flow pattern is suggestive of impaired LV relaxation. The right ventricle is normal in size and function. Normal left and right atrial size and function. The mitral valve is grossly normal. There is no mitral regurgitation noted. The tricuspid valve is not well visualized, but is grossly normal. There is mild tricuspid regurgitation. The aortic valve is normal in structure and function. The pulmonic valve is not well seen, but is grossly normal. Mild pulmonic valvular regurgitation. The aortic root is normal size. Normal aortic arch, descending and ascending aorta There is no pericardial effusion. Romeo Hernandez 06/17/2020, 2:42 PM Ordering Physician: Jamaal Shanks Referring Physician: JAMAAL SHANKS Performed By: Reva Sanchez
--- NOTE | 2020-06-17 16:38 | PN ---
Progress Note (short form) - Note Progress Note: Contacted by Rn that pt is refusing remainder of prbcs after 1 unit. Pt requesting blood work be ordered now to see what "her numbers are". Spoke to pt at length. Recommend at minimum 2 units pRBCs due to level of bleeding intra-op/post-op as well as drop in h/h and symptoms. Pt requesting to get out of bed to see how she feels. Rn aware, pt can get oob with assistance ONLY Discussed with pt likelihood of needing additional units tomorrow and that d/c will be delayed. Pt verbalized understanding post transfusion h/h ordered for 7pm. Medicine to follow up
[2020-06-17] MEDS: ceFAZolin 2 GRAM PREMIX BAG IVPB SCH (17:43)
[2020-06-17 21:07] LABS: HEMATOCRIT 24.4 % (32.4-45.2); HEMOGLOBIN 8.3 GM/dL (10.7-15.3); MCH 31.8 pg (25.7-33.7); MCHC 34.2 g/dl (32.0-36.0); MEAN CELL VOLUME 93.2 fl (80-96); MEAN PLT VOLUME 9.5 fl (7.5-11.1); PLATELET COUNT 105 K/MM3 (134-434); RBC 2.62 M/mm3 (3.60-5.2); RDW 13.6 % (11.6-15.6); WHITE BLOOD COUNT 9.2 K/mm3 (4.0-10.0)
[2020-06-17] MEDS ORDERED: HEPARIN NA (PORCINE) 5,000 UNITS/ML 1ML VIAL SQ SCH (22:00)
[2020-06-18] MEDS: ceFAZolin 2 GRAM PREMIX BAG IVPB SCH ×3 (01:15→18:08)
[2020-06-18 07:19] LABS: HEMATOCRIT 23.6 % (32.4-45.2); MCH 31.1 pg (25.7-33.7); MCHC 33.9 g/dl (32.0-36.0); MEAN CELL VOLUME 91.8 fl (80-96); MEAN PLT VOLUME 9.1 fl (7.5-11.1); PLATELET COUNT 111 K/MM3 (134-434); RBC 2.57 M/mm3 (3.60-5.2); RDW 13.5 % (11.6-15.6); WHITE BLOOD COUNT 9.2 K/mm3 (4.0-10.0)
[2020-06-18 07:52] LABS: ALBUMIN 2.5 g/dl (3.4-5.0); BILIRUBIN,TOTAL 0.6 mg/dL (0.2-1); CALCIUM 7.8 mg/dL (8.5-10.1); CREATININE 0.5 mg/dL (0.55-1.3); PHOSPHOROUS 1.3 mg/dL (2.5-4.9); POTASSIUM 3.7 mmol/L (3.5-5.1); TOT PROT 5.4 g/dl (6.4-8.2)
[2020-06-18] MEDS ORDERED: PT OWN MED DRAWER 7, Y5N ONE (09:53)
[2020-06-18] MEDS ORDERED: NAPH,MB-DB/K PH,MBDB POWDER PACKET PO SCH (10:00)
[2020-06-18] MEDS: FERROUS SO4 325 MG TABLET (FP) PO SCH (10:11)
[2020-06-18] MEDS: NAPH,MB-DB/K PH,MBDB POWDER PACKET PO SCH (10:11)
[2020-06-18] MEDS: LACTATED RINGERS SOLUTION 1,000 ML IV SCH ×2 (10:12→18:11)
[2020-06-18] MEDS: ASCORBIC ACID 250 MG TABLET (FP) PO SCH (10:12)
--- NOTE | 2020-06-18 10:26 | PN ---
Progress Note (short form) - Note Progress Note: POD 3, s/p open abdominal myomectomy Pt seen and examined. States she is doing well, no issues overnight. Reports L chest/left shoulder pain has resolved. Has been oob without issue. Tolerating regular diet. No BM, voiding without issue. Denies sob, n/v/d. Vital Signs Temp 98.2 F 06/18/20 10:09 Pulse 107 H 06/18/20 10:09 Resp 19 06/18/20 10:09 BP 120/74 06/18/20 10:09 Pulse Ox 100 06/18/20 10:09 Intake & Output 06/17/20 06/17/20 06/18/20 11:59 23:59 11:59 Intake Total 320 496 5482 Balance 454 062 2929 Intake: IV 250 625 875 Lactated Ringers Solution 250 625 875 1,000 ml @ 125 mls/hr IV ASDIR [facility] Rx#: [id number] IVPB 50 Oral 240 Packed Cells 350 Other: Voiding Method Bedpan Toilet # Unmeasured Voids Osborn 2 Void 3 1 1 Bowel Movement No No CBC, BMP 06/18/20 05:48 06/18/20 05:48 Gen: awake, alert, nad Resp: unlabored on RA Abdo: soft, distended, + bowel sounds, incision c/d/i with steri-strips overlying, no erythema or drainage. A/P: 49 y/o F w/ PMhx leiomyomas now POD 3, s/p open abdominal myomectomy complicated by acute blood loss anemia. s/p 1 unit prbcs yesterday, refused additional units pt tachy to low 100s, normotensive to systolic 120s Hct improved to 24.4 now 23.6 Discussed with pt need for additional unit of pRBCS, pt refusing currently -pain control as ordered (pt very comfortable with current regimen) -Diet as tolerated -Continue to monitor vs -continue scds -bowel regimen -oob with assist only -stress test recommended by Cards d/w attending Dr Graves
--- NOTE | 2020-06-18 13:25 | PN ---
Teaching Attending Note Name of Resident: Leoncio Valdes ATTENDING PHYSICIAN STATEMENT I saw and evaluated the patient. I reviewed the resident's note and discussed the case with the resident. I agree with the resident's findings and plan as documented. SUBJECTIVE: Patient feels well this morning States she walked around without shortness of breath/dizziness OBJECTIVE: Vital Signs Period Temp Pulse Resp BP Sys/Bill Pulse Ox Last 24 Hr 98.2 F-99.8 F 93-115 16-19 112-122/66-88 93-100 GENERAL: Awake, alert, No distress. HEAD: Normal with no signs of trauma. EYES: Pupils equal, round and reactive to light, extraocular movements intact, no sclera pallor noted, conjunctiva clear. EARS, NOSE, THROAT: Ears normal, nares patent, oropharynx clear without exudates. Moist mucous membranes. NECK: Normal range of motion, No JVD LUNGS: Breath sounds equal, clear to auscultation bilaterally. No wheezes, and n o crackles. No accessory muscle use. HEART: Regular rate and rhythm, normal S1 and S2 without murmur, rub or gallop. ABDOMEN: Soft, BS+, Bandage noted from surgical incision MUSCULOSKELETAL: Normal range of motion at all joints. No bony deformities or tenderness. No CVA tenderness. NEUROLOGICAL: Cranial nerves II-XII intact. Normal speech. PSYCHIATRIC: Cooperative. Good eye contact. Appropriate mood and affect. SKIN: Warm, dry, normal turgor, no rashes or lesions noted. Echo Reviewed ASSESSMENT AND PLAN: 49 y/o F who presents for myomectomy s/p OR. Medicine consulted for Chest pain/presyncope Chest Pain: Likely non cardiac in etiology However, given new EKG changes, patient reccomended for Stress test in AM per cardiology Toponins have been negative Continue tele monitor Presyncope in setting of Anemia 2/2 blood loss. s/p 1 unit PRBC HB stable this am, patient no longer with dizziness/SOB monitor Hb, transfuse as needed Rest of plan/management as per resident note/primary team Defer further management to Cardiology at this time Medicine will sign off, Please reconsult with additional questions
--- NOTE | 2020-06-18 16:56 | EKG ---
Test Reason : Blood Pressure : / mmHG Vent. Rate : 115 BPM Atrial Rate : 115 BPM P-R Int : 180 ms QRS Dur : 080 ms QT Int : 328 ms P-R-T Axes : 041 025 069 degrees QTc Int : 453 ms SINUS TACHYCARDIA T WAVE ABNORMALITY, CONSIDER ANTERIOR ISCHEMIA ABNORMAL ECG NO PREVIOUS ECGS AVAILABLE Confirmed by CHARY PONCE, BAYRON ([id number]) on 06/18/2020 4:56:02 PM Referred By: Neha Galdamez Confirmed By:BAYRON DIEZ MD
--- NOTE | 2020-06-18 17:21 | PN ---
Physical Exam: SUBJECTIVE: Patient seen and examined OBJECTIVE: Vital Signs Period Temp Pulse Resp BP Sys/Bill Pulse Ox Last 24 Hr 98.2 F-99.8 F 93-115 16-19 111-121/57-88 93-100 GENERAL: The patient is awake, alert, and fully oriented, in no acute distress. LUNGS: Breath sounds equal, clear to auscultation bilaterally, no wheezes, no crackles, no accessory muscle use. HEART: Regular rate and rhythm, S1, S2 without murmur, rub or gallop. ABDOMEN: Soft, with bowel sounds in all 4 quadrants, transverse abdominal incision bandage noted EXTREMITIES: 2+ pulses, warm, well-perfused, no edema. SKIN: Warm, dry, normal turgor, no rashes or lesions noted Laboratory Results - last 24 hr 06/17/20 06/18/20 06/18/20 20:45 05:48 05:48 WBC 9.2 9.2 RBC 2.62 L 2.57 L Hgb 8.3 L 8.0 L Hct 24.4 L 23.6 L MCV 93.2 91.8 MCH 31.8 31.1 MCHC 34.2 33.9 RDW 13.6 13.5 Plt Count 105 L 111 L MPV 9.5 9.1 Sodium 141 Potassium 3.7 Chloride 108 H Carbon Dioxide 27 Anion Gap 7 L BUN 5.0 L Creatinine 0.5 L Est GFR (CKD-EPI)AfAm 129.88 Est GFR (CKD-EPI)NonAf 112.06 Random Glucose 93 Calcium 7.8 L Phosphorus 1.3 L Total Bilirubin 0.6 AST 46 H ALT 16 Alkaline Phosphatase 46 Total Protein 5.4 L Albumin 2.5 L Blood Type 06/18/20 10:48 WBC RBC Hgb Hct MCV MCH MCHC RDW Plt Count MPV Sodium Potassium Chloride Carbon Dioxide Anion Gap BUN Creatinine Est GFR (CKD-EPI)AfAm Est GFR (CKD-EPI)NonAf Random Glucose Calcium Phosphorus Total Bilirubin AST ALT Alkaline Phosphatase Total Protein Albumin Blood Type O POSITIVE Active Medications Generic Name Dose Route Start Last Admin Trade Name Freq PRN Reason Stop Dose Admin Acetaminophen 650 mg 06/17/20 10:02 Tylenol - PO Q4H PRN FEVER Ascorbic Acid 250 mg 06/17/20 10:00 06/18/20 10:12 Vitamin C - PO 250 mg DAILY [facility] Administration Bisacodyl 10 mg 08/19/20 10:02 Dulcolax - PO ONCE PRN CONSTIPATION Cefazolin Sodium/Dextrose 2 gm 06/17/20 18:00 06/18/20 10:11 Ancef 2 Gm Premixed Ivpb - IVPB 2 gm Q8H-IV [facility] Administration Docusate Sodium 100 mg 06/17/20 10:02 Colace - PO TID PRN CONSTIPATION Ferrous Sulfate 325 mg 06/17/20 10:00 06/18/20 10:11 Feosol - PO 325 mg DAILY [facility] Administration Lactated Ringer's 1,000 mls @ 100 mls/hr 06/18/20 14:11 Lactated Ringers Solution IV ASDIR [facility] Ondansetron HCl 4 mg 06/17/20 10:02 Zofran Injection IVPUSH Q4H PRN NAUSEA AND/OR VOMITING Ondansetron HCl 4 mg 06/17/20 10:02 Zofran Injection IVPUSH Q6H PRN NAUSEA AND/OR VOMITING Oxycodone HCl 5 mg 06/17/20 10:02 Roxicodone - PO Q4H PRN PAIN LEVEL 1-5 Oxycodone HCl 10 mg 06/17/20 10:02 Roxicodone - PO Q4H PRN PAIN LEVEL 6-10 Potassium Phos/Sodium Phos 1 packet 06/17/20 16:00 06/18/20 10:11 Phos-Nak Packet - PO 1 packet DAILY [facility] Administration Potassium Phos/Sodium Phos 1 packet 06/18/20 22:00 Phos-Nak Packet - PO 06/18/20 22:01 ONCE ONE Simethicone 80 mg 06/17/20 10:02 Mylicon - PO Q4H PRN GAS ASSESSMENT/PLAN: Ms. Braden Hart is a 49F consulted for a cardiac workup for chest pain after myomectomy procedure. #Chest Pain - r/o ACS as cause of chest pain - negative trops x3 - Likely non cardiac in etiology - Serial EKG negative for ischemic changes - recommend outpatient echo for further cardiac work up - Telemetry monitoring - likely a result of blood loss - Recommendations for blood transfusions to baseline H/H - will follow H/H - Cardiology on board - Stress test in AM #Anemia: - blood loss anemia - recommendations of PRBC x1 - follow H/H - Follow calcium levels as prbc contain citrate which, in turn, would bind calcium ions in the serum #DVT ppx - SCDs Visit type - Emergency Visit Emergency Visit: Yes ED Registration Date: 06/15/20 Care time: The patient presented to the Emergency Department on the above date and was hospitalized for further evaluation of their emergent condition. - New Patient This patient is new to me today: No - Critical Care Critical Care patient: No - Discharge Referral Referred to [facility] Med P.C.: No ATTENDING PHYSICIAN STATEMENT I saw and evaluated the patient. I reviewed the resident's note and discussed the case with the resident. I agree with the resident's findings and plan as documented. SUBJECTIVE: OBJECTIVE: ASSESSMENT AND PLAN:
--- NOTE | 2020-06-18 18:22 | PN ---
Progress Note, Physician Chief Complaint: PT A&Ox3; OOB in chair; asymptomatic. History of Present Illness: Ms. Feliciano is a 49 yr old black woman with no known significant PMHx, now transferred to telemetry after developing lightheadedness followed by sharp chest pain after undergoing open abdominal myomectomy for leiomyoma today. Hb was noted to have decreased from 12.7 to 9.4. Pt was exercising regularly prior to the surgery, and denies having had chest pain before. No hx cigarettes. - Current Medication List Current Medications: Active Medications Acetaminophen (Tylenol -) 650 mg PO Q4H PRN PRN Reason: FEVER Ascorbic Acid (Vitamin C -) 250 mg PO DAILY [facility] Last Admin: 06/18/20 10:12 Dose: 250 mg Documented by: Bisacodyl (Dulcolax -) 10 mg PO ONCE PRN PRN Reason: CONSTIPATION Cefazolin Sodium/Dextrose (Ancef 2 Gm Premixed Ivpb -) 2 gm IVPB Q8H-IV [facility] Last Admin: 06/18/20 18:08 Dose: 2 gm Documented by: Docusate Sodium (Colace -) 100 mg PO TID PRN PRN Reason: CONSTIPATION Ferrous Sulfate (Feosol -) 325 mg PO DAILY [facility] Last Admin: 06/18/20 10:11 Dose: 325 mg Documented by: Lactated Ringer's (Lactated Ringers Solution) 1,000 mls @ 100 mls/hr IV ASDIR [facility] Last Admin: 06/18/20 18:11 Dose: 100 mls/hr Documented by: Ondansetron HCl (Zofran Injection) 4 mg IVPUSH Q4H PRN PRN Reason: NAUSEA AND/OR VOMITING Ondansetron HCl (Zofran Injection) 4 mg IVPUSH Q6H PRN PRN Reason: NAUSEA AND/OR VOMITING Oxycodone HCl (Roxicodone -) 5 mg PO Q4H PRN PRN Reason: PAIN LEVEL 1-5 Oxycodone HCl (Roxicodone -) 10 mg PO Q4H PRN PRN Reason: PAIN LEVEL 6-10 Potassium Phos/Sodium Phos (Phos-Nak Packet -) 1 packet PO DAILY [facility] Last Admin: 06/18/20 10:11 Dose: 1 packet Documented by: Potassium Phos/Sodium Phos (Phos-Nak Packet -) 1 packet PO ONCE ONE Stop: 06/18/20 22:01 Simethicone (Mylicon -) 80 mg PO Q4H PRN PRN Reason: GAS - Objective Vital Signs: Vital Signs Temperature 98.6 F 06/18/20 13:38 Pulse Rate 103 H 06/18/20 13:38 Respiratory Rate 18 06/18/20 13:38 Blood Pressure 111/57 L 06/18/20 13:38 O2 Sat by Pulse Oximetry (%) 100 06/18/20 10:09 Constitutional: Yes: No Distress Eyes: Yes: WNL HENT: Yes: WNL Neck: Yes: WNL Cardiovascular: Yes: WNL Respiratory: Yes: WNL Gastrointestinal: Yes: WNL ...Rectal Exam: Yes: Deferred Genitourinary: No: Anuria Breast(s): Yes: WNL Musculoskeletal: Yes: Muscle Pain Extremities: Yes: WNL Edema: No Peripheral Pulses WNL: Yes Integumentary: Yes: Incision Wound/Incision: Yes: Dressing Dry and Intact Neurological: Yes: WNL, Paresthesia ...Motor Strength: WNL Psychiatric: Yes: WNL Labs: CBC, BMP 06/18/20 05:48 06/18/20 05:48 Abnormal Lab Results 06/17/20 06/18/20 06/18/20 20:45 05:48 05:48 RBC 2.62 L 2.57 L Hgb 8.3 L 8.0 L Hct 24.4 L 23.6 L Plt Count 105 L 111 L Chloride 108 H Anion Gap 7 L BUN 5.0 L Creatinine 0.5 L Calcium 7.8 L Phosphorus 1.3 L AST 46 H Total Protein 5.4 L Albumin 2.5 L - ....Imaging Ultrasound: Report Reviewed (ECHO) Assessment/Plan Lightheadedness and sharp chest pain post-myomectomy for leiomyoma acute anemia (Hb 12.7-->9.4-->8.0) Diastolic LV dysfunction New EKG changes post-op: sinus tachycardia; T wave inversions throughout precordial leads; r/o ischemia Hypocalcemia; hypophosphatemia Plan: TNI < 0.02 x 3 EKG today: NSR; nonspecific T wave changes V1-3. Repeat in am. Telemetry: no arrhythmias Lipids and HGBA1c WNL; mildly elevated TSH, with normal free T4. ECHO: normal LVEF; abnormal diastolic compliance; mild TR and MI On IV hydration; f/u Hb (pt apparently refused PRBCs after 1 unit transfused); encourage PO intake (food and liquid). Replete electrolytes.
[2020-06-18] MEDS ORDERED: NAPH,MB-DB/K PH,MBDB POWDER PACKET PO ONE (22:00)
[2020-06-19] MEDS: ceFAZolin 2 GRAM PREMIX BAG IVPB SCH ×3 (01:12→19:14)
[2020-06-19 07:15] LABS: BASO % 0.2 % (0-2.0); EOS % 4.6 % (0-4.5); HEMATOCRIT 22.9 % (32.4-45.2); HEMOGLOBIN 7.8 GM/dL (10.7-15.3); LYMPH % 18.8 % (8-40); MCH 31.4 pg (25.7-33.7); MEAN CELL VOLUME 92.3 fl (80-96); MEAN PLT VOLUME 9.3 fl (7.5-11.1); MONO % 10.4 % (3.8-10.2); PLATELET COUNT 149 K/MM3 (134-434); RBC 2.48 M/mm3 (3.60-5.2); RDW 13.8 % (11.6-15.6); WHITE BLOOD COUNT 7.5 K/mm3 (4.0-10.0)
[2020-06-19] MEDS ORDERED: PT OWN MED DRAWER 7, Y5N ONE (08:58)
[2020-06-19] MEDS: FERROUS SO4 325 MG TABLET (FP) PO SCH (09:04)
[2020-06-19] MEDS: ASCORBIC ACID 250 MG TABLET (FP) PO SCH (09:04)
[2020-06-19] MEDS: NAPH,MB-DB/K PH,MBDB POWDER PACKET PO SCH (09:04)
--- NOTE | 2020-06-19 09:09 | PN ---
Progress Note (short form) - Note Progress Note: POD 4, s/p open abdominal myomectomy Pt seen and examined. States she is doing well, no issues overnight. Had episode of urinary incontinence on the floor this morning, reports she didn't get to the restroom on time. Has been oob without issue. Tolerating regular diet. No BM, voiding without issue. Denies sob, n/v/d. Vital Signs Temp 99.2 F 06/19/20 09:02 Pulse 98 H 06/19/20 09:02 Resp 18 06/19/20 09:02 BP 126/78 06/19/20 09:02 Pulse Ox 100 06/19/20 09:02 Intake & Output 06/18/20 06/18/20 06/19/20 11:59 23:59 11:59 Intake Total 1165 2995 750 Balance 1165 2995 750 Intake: IV 875 1775 700 Lactated Ringers Solution 1150 700 1,000 ml @ 100 mls/hr IV [facility] Rx#: [id number] Lactated Ringers Solution 875 625 1,000 ml @ 125 mls/hr IV [facility] Rx#: [id number] IVPB 50 100 50 Oral 240 1120 0 Other: Voiding Method Toilet Toilet # Unmeasured Voids Void 1 1 1 Bowel Movement Yes # Bowel Movements 1 CBC, BMP 06/19/20 05:53 06/18/20 05:48 Gen: awake, alert, nad Resp: unlabored on RA Abdo: soft, distended, + bowel sounds, incision c/d/i with steri-strips overlying, no erythema or drainage. A/P: 49 y/o F w/ PMhx leiomyomas now POD 4, s/p open abdominal myomectomy complicated by acute blood loss anemia. Pt tachy to 126 again this AM, BP low 100s systolic. Extensive conversation between pt and Dr Graves regarding need for additional blood transfusion. Pt very resistant to additional transfusion due to continued concern for transmission of communicable diseases. Pt made aware she is persistently tachycardic/hypotensive. Pt inquired about risks of not receiving transfusion. All risks discussed with pt at length, pt verbalized understanding. Pt agrees to one additional unit of pRBCs. Will continue to monitor. stress test monday per cardiology medicine following-d/w attending Dr Mace pt seen and examined with attending Dr Graves
--- NOTE | 2020-06-19 10:42 | EKG ---
Test Reason : Blood Pressure : / mmHG Vent. Rate : 094 BPM Atrial Rate : 094 BPM P-R Int : 134 ms QRS Dur : 084 ms QT Int : 330 ms P-R-T Axes : 041 037 038 degrees QTc Int : 412 ms NORMAL SINUS RHYTHM NONSPECIFIC T WAVE ABNORMALITY WHEN COMPARED WITH ECG OF 17-JUN-2020 15:03, NONSPECIFIC T WAVE ABNORMALITY HAS REPLACED INVERTED T WAVES IN ANTERIOR LEADS Confirmed by ROMEO STAFFORD MD ([id number]) on 06/19/2020 10:42:22 AM Referred By: Neha Galdamez Confirmed By:ROMEO STAFFORD MD
--- NOTE | 2020-06-19 13:22 | PN ---
Progress Note, Physician History of Present Illness: Ms. Feliciaon is a 49 yr old woman with no known significant PMHx is now transferred to telemetry after developing lightheadedness followed by sharp chest pain after undergoing open abdominal myomectomy for leiomyoma today. Hb was noted to have decreased from 12.7 to 9.4. Pt was exercising regularly prior to the surgery, and denies having had chest pain before. No hx cigarettes. - Current Medication List Current Medications: Active Medications Acetaminophen (Tylenol -) 650 mg PO Q4H PRN PRN Reason: FEVER Ascorbic Acid (Vitamin C -) 250 mg PO DAILY [facility] Last Admin: 06/19/20 09:04 Dose: 250 mg Documented by: Bisacodyl (Dulcolax -) 10 mg PO ONCE PRN PRN Reason: CONSTIPATION Cefazolin Sodium/Dextrose (Ancef 2 Gm Premixed Ivpb -) 2 gm IVPB Q8H-IV [facility] Last Admin: 06/19/20 09:04 Dose: 2 gm Documented by: Docusate Sodium (Colace -) 100 mg PO TID PRN PRN Reason: CONSTIPATION Ferrous Sulfate (Feosol -) 325 mg PO DAILY [facility] Last Admin: 06/19/20 09:04 Dose: 325 mg Documented by: Lactated Ringer's (Lactated Ringers Solution) 1,000 mls @ 100 mls/hr IV ASDIR [facility] Last Admin: 06/18/20 18:11 Dose: 100 mls/hr Documented by: Ondansetron HCl (Zofran Injection) 4 mg IVPUSH Q4H PRN PRN Reason: NAUSEA AND/OR VOMITING Ondansetron HCl (Zofran Injection) 4 mg IVPUSH Q6H PRN PRN Reason: NAUSEA AND/OR VOMITING Oxycodone HCl (Roxicodone -) 5 mg PO Q4H PRN PRN Reason: PAIN LEVEL 1-5 Oxycodone HCl (Roxicodone -) 10 mg PO Q4H PRN PRN Reason: PAIN LEVEL 6-10 Potassium Phos/Sodium Phos (Phos-Nak Packet -) 1 packet PO DAILY [facility] Last Admin: 06/19/20 09:04 Dose: 1 packet Documented by: Simethicone (Mylicon -) 80 mg PO Q4H PRN PRN Reason: GAS - Objective Vital Signs: Vital Signs Temperature 99.2 F 08/21/20 09:02 Pulse Rate 98 H 06/19/20 09:02 Respiratory Rate 18 06/19/20 09:02 Blood Pressure 126/78 06/19/20 09:02 O2 Sat by Pulse Oximetry (%) 100 06/19/20 09:02 Eyes: Yes: WNL, Conjunctiva Clear, EOM Intact HENT: Yes: WNL, Atraumatic, Normocephalic Neck: Yes: WNL, Supple, Trachea Midline Cardiovascular: Yes: WNL, Regular Rate and Rhythm Respiratory: Yes: WNL, Regular, CTA Bilaterally Gastrointestinal: Yes: WNL, Normal Bowel Sounds Genitourinary: Yes: WNL Musculoskeletal: Yes: WNL Extremities: Yes: WNL Edema: No Integumentary: Yes: WNL Neurological: Yes: WNL, Alert, Oriented ...Motor Strength: WNL Psychiatric: Yes: WNL Labs: CBC, BMP 06/19/20 05:53 06/18/20 05:48 Assessment/Plan Lightheadedness and sharp chest pain post-myomectomy for leiomyoma acute anemia (Hb 12.7-->9.4-->8.0) Diastolic LV dysfunction New EKG changes post-op: sinus tachycardia; T wave inversions throughout precord ial leads; r/o ischemia Hypocalcemia; hypophosphatemia Plan: TNI < 0.02 x 3 EKG today: NSR; nonspecific T wave changes V1-3. Repeat in am. Telemetry: no arrhythmias Lipids and HGBA1c WNL; mildly elevated TSH, with normal free T4. ECHO: normal LVEF; abnormal diastolic compliance; mild TR and MS Awaiting PRBC transfusion. Expressed the whish to go home, however would consider staying until stress test is done. MIBI stress test on Monday Discussed at length importance of stress test prior to discharge. Patient understands the risks of NC, progression of ASHD and . nurse Keita was present during entire conversation.
[2020-06-19] MEDS: LACTATED RINGERS SOLUTION 1,000 ML IV SCH (22:19)
[2020-06-20] MEDS: ceFAZolin 2 GRAM PREMIX BAG IVPB SCH ×3 (03:00→17:56)
[2020-06-20] MEDS ORDERED: PT OWN MED DRAWER 7, Y5N ONE ×2 (04:00→09:36)
[2020-06-20 06:31] LABS: BASO % 0.3 % (0-2.0); EOS % 3.4 % (0-4.5); HEMATOCRIT 31.4 % (32.4-45.2); HEMOGLOBIN 10.6 GM/dL (10.7-15.3); LYMPH % 17.5 % (8-40); MCH 30.6 pg (25.7-33.7); MCHC 33.7 g/dl (32.0-36.0); MEAN CELL VOLUME 90.9 fl (80-96); MONO % 9.8 % (3.8-10.2); PLATELET COUNT 185 K/MM3 (134-434); RBC 3.46 M/mm3 (3.60-5.2); WHITE BLOOD COUNT 8.7 K/mm3 (4.0-10.0)
[2020-06-20 06:58] LABS: BLOOD UREA NITROGEN 6.5 mg/dL (7-18); CALCIUM 8.3 mg/dL (8.5-10.1); CREATININE 0.6 mg/dL (0.55-1.3); POTASSIUM 3.7 mmol/L (3.5-5.1)
[2020-06-20] MEDS: ASCORBIC ACID 250 MG TABLET (FP) PO SCH (09:40)
[2020-06-20] MEDS: NAPH,MB-DB/K PH,MBDB POWDER PACKET PO SCH (09:40)
[2020-06-20] MEDS: FERROUS SO4 325 MG TABLET (FP) PO SCH (09:40)
--- NOTE | 2020-06-20 11:28 | PN ---
Progress Note, Physician Chief Complaint: Cardiology for Dr. Robison History of Present Illness: No further recurrence lightheadedness and sharp chest pain, Hb was noted to have decreased from 12.7 to 9.4 post-op. Hgb stable post 1 up pRBC. Pt was exercising regularly prior to the surgery, and denies having had chest pain before. - Current Medication List Current Medications: Active Medications Acetaminophen (Tylenol -) 650 mg PO Q4H PRN PRN Reason: FEVER Ascorbic Acid (Vitamin C -) 250 mg PO DAILY [facility] Last Admin: 06/20/20 09:40 Dose: 250 mg Documented by: Bisacodyl (Dulcolax -) 10 mg PO ONCE PRN PRN Reason: CONSTIPATION Cefazolin Sodium/Dextrose (Ancef 2 Gm Premixed Ivpb -) 2 gm IVPB Q8H-IV [facility] Last Admin: 06/20/20 09:40 Dose: 2 gm Documented by: Docusate Sodium (Colace -) 100 mg PO TID PRN PRN Reason: CONSTIPATION Ferrous Sulfate (Feosol -) 325 mg PO DAILY [facility] Last Admin: 06/20/20 09:40 Dose: 325 mg Documented by: Lactated Ringer's (Lactated Ringers Solution) 1,000 mls @ 100 mls/hr IV ASDIR [facility] Last Admin: 06/19/20 22:19 Dose: 100 mls/hr Documented by: Ondansetron HCl (Zofran Injection) 4 mg IVPUSH Q4H PRN PRN Reason: NAUSEA AND/OR VOMITING Ondansetron HCl (Zofran Injection) 4 mg IVPUSH Q6H PRN PRN Reason: NAUSEA AND/OR VOMITING Potassium Phos/Sodium Phos (Phos-Nak Packet -) 1 packet PO DAILY [facility] Last Admin: 06/20/20 09:40 Dose: 1 packet Documented by: Simethicone (Mylicon -) 80 mg PO Q4H PRN PRN Reason: GAS - Objective Vital Signs: Vital Signs Temperature 97.7 F 06/20/20 09:47 Pulse Rate 99 H 06/20/20 09:47 Respiratory Rate 18 06/20/20 09:47 Blood Pressure 119/73 06/20/20 09:47 O2 Sat by Pulse Oximetry (%) 100 06/20/20 09:47 Constitutional: Yes: No Distress, Calm, Thin Neck: Yes: Supple Cardiovascular: Yes: Regular Rate and Rhythm Respiratory: Yes: Regular, CTA Bilaterally Gastrointestinal: Yes: Soft, Hypoactive Bowel Sounds, Other (Post-op) Edema: No Labs: CBC, BMP 06/20/20 05:35 06/20/20 05:35 - ....Imaging EKG: Report Reviewed (Tele: NSR) Problem List - Problems (1) Chest pain Code(s): R07.9 - CHEST PAIN, UNSPECIFIED Qualifiers: Chest pain type: unspecified Qualified Code(s): R07.9 - Chest pain, unspecified (2) S/P myomectomy Code(s): Z98.890 - OTHER SPECIFIED POSTPROCEDURAL STATES (3) Acute blood loss anemia Code(s): D62 - ACUTE POSTHEMORRHAGIC ANEMIA Assessment/Plan 1. Lightheadedness and sharp chest pain post-myomectomy for leiomyoma 2. Acute blood loss anemia post open abdominal myomectomy post pRBC transfusion 3. Diastolic LV dysfunction 4. New EKG changes post-op: sinus tachycardia; T wave inversions throughout precordial leads; r/o ischemia 5. Hypocalcemia; hypophosphatemia Plan: TNI < 0.02 x 3 EKG 06/19/2020: NSR; nonspecific T wave changes V1-3 same as previous Telemetry: no arrhythmias Lipids and HGBA1c WNL; mildly elevated TSH, with normal free T4. ECHO: normal LVEF; abnormal diastolic compliance; mild TR and IN MIBI stress test on Monday
[2020-06-20] MEDS: LACTATED RINGERS SOLUTION 1,000 ML IV SCH (14:30)
--- NOTE | 2020-06-20 15:08 | PN ---
Progress Note, Physician Chief Complaint: No acute events overnight, denies chest pain History of Present Illness: A/P: 49 year old Female with a PMhx leiomyomas now s/p open abdominal myomectomy on complicated by acute blood loss anemia and chest pain. - Current Medication List Current Medications: Active Medications Acetaminophen (Tylenol -) 650 mg PO Q4H PRN PRN Reason: FEVER Ascorbic Acid (Vitamin C -) 250 mg PO DAILY [facility] Last Admin: 06/20/20 09:40 Dose: 250 mg Documented by: Bisacodyl (Dulcolax -) 10 mg PO ONCE PRN PRN Reason: CONSTIPATION Cefazolin Sodium/Dextrose (Ancef 2 Gm Premixed Ivpb -) 2 gm IVPB Q8H-IV [facility] Last Admin: 06/20/20 09:40 Dose: 2 gm Documented by: Docusate Sodium (Colace -) 100 mg PO TID PRN PRN Reason: CONSTIPATION Ferrous Sulfate (Feosol -) 325 mg PO DAILY [facility] Last Admin: 06/20/20 09:40 Dose: 325 mg Documented by: Lactated Ringer's (Lactated Ringers Solution) 1,000 mls @ 100 mls/hr IV ASDIR [facility] Last Admin: 06/19/20 22:19 Dose: 100 mls/hr Documented by: Ondansetron HCl (Zofran Injection) 4 mg IVPUSH Q4H PRN PRN Reason: NAUSEA AND/OR VOMITING Ondansetron HCl (Zofran Injection) 4 mg IVPUSH Q6H PRN PRN Reason: NAUSEA AND/OR VOMITING Potassium Phos/Sodium Phos (Phos-Nak Packet -) 1 packet PO DAILY [facility] Last Admin: 06/20/20 09:40 Dose: 1 packet Documented by: Simethicone (Mylicon -) 80 mg PO Q4H PRN PRN Reason: GAS - Objective Vital Signs: Vital Signs Temperature 97.7 F 06/20/20 09:47 Pulse Rate 99 H 06/20/20 09:47 Respiratory Rate 18 06/20/20 09:47 Blood Pressure 119/73 06/20/20 09:47 O2 Sat by Pulse Oximetry (%) 100 06/20/20 09:47 Constitutional: Yes: Well Nourished, No Distress, Calm Eyes: Yes: WNL, Conjunctiva Clear HENT: Yes: WNL, Atraumatic, Normocephalic Neck: Yes: WNL, Supple, Trachea Midline Cardiovascular: Yes: WNL, Regular Rate and Rhythm Respiratory: Yes: WNL, Regular, CTA Bilaterally Gastrointestinal: Yes: WNL, Normal Bowel Sounds, Soft Genitourinary: Yes: WNL Musculoskeletal: Yes: WNL Extremities: Yes: WNL Edema: No Peripheral Pulses WNL: Yes Peripheral Pulses: Left Doralis Pedis: 2+, Right Dorsalis Pedis: 2+ Integumentary: Yes: WNL Neurological: Yes: WNL, Alert, Oriented ...Motor Strength: WNL Psychiatric: Yes: WNL, Alert, Oriented Labs: CBC, BMP 06/20/20 05:35 06/20/20 05:35 Impression/Plan Impression/Plan: A/P: 49 y/o Female with a PMhx leiomyomas now s/p open abdominal myomectomy on complicated by acute blood loss anemia and chest pain. #Chest Pain/Lightheadednss - r/o ACS as cause of chest pain - negative trops x3 - Lipids and HGBA1c WNL; mildly elevated TSH, with normal free T4. - 2D ECHO: normal LVEF; abnormal diastolic compliance; mild TR and RI - Likely non cardiac in etiology , but secondary to blood loss (Hb 12.7-->9.4-->8.0) - New EKG changes post-op: sinus tachycardia; T wave inversions throughout precordial leads; r/o ischemia - Serial EKG negative for ischemic changes - Recommend outpatient echo for further cardiac work up - Telemetry monitoring - Recommendations for blood transfusions to baseline Hgb/Hct - will follow Hgb/Hct - Cardiology on board - Stress test on Monday AM #Anemia: - Acute blood loss anemia - s/p PRBC transfusion - follow Hgb/Hgb ; Hgb = 10 - Follow calcium levels as prbc contain citrate which, in turn, would bind calcium ions in the serum #DVT prophylaxsis - SCDs Visit type - Emergency Visit Emergency Visit: Yes ED Registration Date: 06/15/20 Care time: The patient presented to the Emergency Department on the above date and was hospitalized for further evaluation of their emergent condition. - New Patient This patient is new to me today: Yes Date on this admission: 08/22/20 - Critical Care Critical Care patient: No - Discharge Referral Referred to [facility] Med P.C.: No
[2020-06-21] MEDS: ceFAZolin 2 GRAM PREMIX BAG IVPB SCH ×3 (01:37→19:18)
[2020-06-21] MEDS: LACTATED RINGERS SOLUTION 1,000 ML IV SCH (06:34)
[2020-06-21] MEDS ORDERED: PT OWN MED DRAWER 7, Y5N ONE (09:32)
[2020-06-21] MEDS: ASCORBIC ACID 250 MG TABLET (FP) PO SCH (09:36)
[2020-06-21] MEDS: FERROUS SO4 325 MG TABLET (FP) PO SCH (09:36)
[2020-06-21] MEDS: NAPH,MB-DB/K PH,MBDB POWDER PACKET PO SCH (09:36)
--- NOTE | 2020-06-21 12:19 | PN ---
Progress Note, Physician Chief Complaint: Cardiology for Dr. Robison History of Present Illness: No further recurrence lightheadedness and sharp chest pain, Hb was noted to have decreased from 12.7 to 9.4 post-op. Hgb stable post 1 up pRBC. Pt was exercising regularly prior to the surgery, and denies having had chest pain before. - Current Medication List Current Medications: Active Medications Acetaminophen (Tylenol -) 650 mg PO Q4H PRN PRN Reason: FEVER Ascorbic Acid (Vitamin C -) 250 mg PO DAILY [facility] Last Admin: 06/21/20 09:36 Dose: 250 mg Documented by: Bisacodyl (Dulcolax -) 10 mg PO ONCE PRN PRN Reason: CONSTIPATION Cefazolin Sodium/Dextrose (Ancef 2 Gm Premixed Ivpb -) 2 gm IVPB Q8H-IV [facility] Last Admin: 06/21/20 09:36 Dose: 2 gm Documented by: Docusate Sodium (Colace -) 100 mg PO TID PRN PRN Reason: CONSTIPATION Ferrous Sulfate (Feosol -) 325 mg PO DAILY [facility] Last Admin: 06/21/20 09:36 Dose: 325 mg Documented by: Lactated Ringer's (Lactated Ringers Solution) 1,000 mls @ 100 mls/hr IV ASDIR [facility] Last Admin: 06/21/20 06:34 Dose: 100 mls/hr Documented by: Ondansetron HCl (Zofran Injection) 4 mg IVPUSH Q4H PRN PRN Reason: NAUSEA AND/OR VOMITING Ondansetron HCl (Zofran Injection) 4 mg IVPUSH Q6H PRN PRN Reason: NAUSEA AND/OR VOMITING Potassium Phos/Sodium Phos (Phos-Nak Packet -) 1 packet PO DAILY [facility] Last Admin: 06/21/20 09:36 Dose: 1 packet Documented by: Simethicone (Mylicon -) 80 mg PO Q4H PRN PRN Reason: GAS - Objective Vital Signs: Vital Signs Temperature 8.2 F L 06/21/20 10:00 Pulse Rate 98 H 06/21/20 10:00 Respiratory Rate 16 06/21/20 10:00 Blood Pressure 113/74 06/21/20 10:00 O2 Sat by Pulse Oximetry (%) 100 06/21/20 10:00 Constitutional: Yes: No Distress, Calm, Thin Neck: Yes: Supple Cardiovascular: Yes: Regular Rate and Rhythm Respiratory: Yes: Regular, CTA Bilaterally Gastrointestinal: Yes: Soft, Hypoactive Bowel Sounds, Other (Post-op) Edema: No Labs: CBC, BMP 06/20/20 05:35 06/20/20 05:35 - ....Imaging EKG: Report Reviewed (Tele: NSR) Problem List - Problems (1) Chest pain Code(s): R07.9 - CHEST PAIN, UNSPECIFIED Qualifiers: Chest pain type: unspecified Qualified Code(s): R07.9 - Chest pain, unspecified (2) S/P myomectomy Code(s): Z98.890 - OTHER SPECIFIED POSTPROCEDURAL STATES (3) Acute blood loss anemia Code(s): D62 - ACUTE POSTHEMORRHAGIC ANEMIA Assessment/Plan 1. Lightheadedness and sharp chest pain post-myomectomy for leiomyoma 2. Acute blood loss anemia post open abdominal myomectomy post pRBC transfusion 3. Diastolic LV dysfunction 4. New EKG changes post-op: sinus tachycardia; T wave inversions throughout precordial leads; r/o ischemia 5. Hypocalcemia; hypophosphatemia Plan: TNI < 0.02 x 3 EKG 06/19/2020: NSR; nonspecific T wave changes V1-3 same as previous Telemetry: no arrhythmias Lipids and HGBA1c WNL; mildly elevated TSH, with normal free T4. ECHO: normal LVEF; abnormal diastolic compliance; mild TR and ND MIBI stress test on Monday
[2020-06-21] MEDS ORDERED: LACTATED RINGERS SOLUTION 1,000 ML/1,000 ML INFUS.BAG IV SCH (15:00)
[2020-06-21 17:44] LABS: BASO % 0.6 % (0-2.0); EOS % 2.8 % (0-4.5); HEMATOCRIT 35.9 % (32.4-45.2); HEMOGLOBIN 11.8 GM/dL (10.7-15.3); LYMPH % 14.7 % (8-40); MCH 30.4 pg (25.7-33.7); MCHC 32.8 g/dl (32.0-36.0); MEAN CELL VOLUME 92.7 fl (80-96); MEAN PLT VOLUME 8.3 fl (7.5-11.1); MONO % 11.3 % (3.8-10.2); NEUT % 70.6 % (42.8-82.8); PLATELET COUNT 231 K/MM3 (134-434); RBC 3.87 M/mm3 (3.60-5.2); RDW 15.1 % (11.6-15.6); WHITE BLOOD COUNT 9.6 K/mm3 (4.0-10.0)
--- NOTE | 2020-06-21 18:18 | PN ---
Progress Note, Physician Chief Complaint: No acute events overnight History of Present Illness: A/P: 49 year old Female with a PMhx leiomyomas now s/p open abdominal myomectomy on complicated by acute blood loss anemia and chest pain. - Current Medication List Current Medications: Active Medications Acetaminophen (Tylenol -) 650 mg PO Q4H PRN PRN Reason: FEVER Ascorbic Acid (Vitamin C -) 250 mg PO DAILY [facility] Last Admin: 06/21/20 09:36 Dose: 250 mg Documented by: Bisacodyl (Dulcolax -) 10 mg PO ONCE PRN PRN Reason: CONSTIPATION Cefazolin Sodium/Dextrose (Ancef 2 Gm Premixed Ivpb -) 2 gm IVPB Q8H-IV [facility] Last Admin: 06/21/20 09:36 Dose: 2 gm Documented by: Docusate Sodium (Colace -) 100 mg PO TID PRN PRN Reason: CONSTIPATION Ferrous Sulfate (Feosol -) 325 mg PO DAILY [facility] Last Admin: 06/21/20 09:36 Dose: 325 mg Documented by: Lactated Ringer's (Lactated Ringers Solution) 1,000 ml in 1,000 mls @ 42 mls/hr IV ASDIR [facility] Last Admin: 06/21/20 15:10 Dose: 42 mls/hr Documented by: Ondansetron HCl (Zofran Injection) 4 mg IVPUSH Q4H PRN PRN Reason: NAUSEA AND/OR VOMITING Ondansetron HCl (Zofran Injection) 4 mg IVPUSH Q6H PRN PRN Reason: NAUSEA AND/OR VOMITING Potassium Phos/Sodium Phos (Phos-Nak Packet -) 1 packet PO DAILY [facility] Last Admin: 06/21/20 09:36 Dose: 1 packet Documented by: Simethicone (Mylicon -) 80 mg PO Q4H PRN PRN Reason: GAS - Objective Vital Signs: Vital Signs Temperature 98.1 F 06/21/20 14:00 Pulse Rate 98 H 06/21/20 14:00 Respiratory Rate 18 06/21/20 14:00 Blood Pressure 123/71 06/21/20 14:00 O2 Sat by Pulse Oximetry (%) 100 06/21/20 14:00 Constitutional: Yes: Well Nourished, No Distress Eyes: Yes: WNL, Conjunctiva Clear, EOM Intact HENT: Yes: WNL, Atraumatic, Normocephalic Neck: Yes: WNL, Supple, Trachea Midline Cardiovascular: Yes: WNL, Regular Rate and Rhythm Respiratory: Yes: WNL, Regular, CTA Bilaterally Gastrointestinal: Yes: WNL, Normal Bowel Sounds, Soft Genitourinary: Yes: WNL Musculoskeletal: Yes: WNL Extremities: Yes: WNL Edema: No Integumentary: Yes: WNL Neurological: Yes: WNL, Alert, Oriented Psychiatric: Yes: WNL, Alert, Oriented Labs: CBC, BMP 06/21/20 17:25 06/20/20 05:35 Impression/Plan Impression/Plan: A/P: 49 y/o Female with a PMhx leiomyomas now s/p open abdominal myomectomy on complicated by acute blood loss anemia and chest pain. #Chest Pain/Lightheadednss - r/o ACS as cause of chest pain - negative trops x3 - Lipids and HGBA1c WNL; mildly elevated TSH, with normal free T4. - 2D ECHO: normal LVEF; abnormal diastolic compliance; mild TR and NH - Likely non cardiac in etiology , but secondary to blood loss (Hb 12.7-->9.4-->8.0) - New EKG changes post-op: sinus tachycardia; T wave inversions throughout precordial leads; r/o ischemia - Serial EKG negative for ischemic changes - Telemetry monitoring - will follow Hgb/Hct - Cardiology on board - Stress test on Monday AM (NPO after MD) #Anemia: - Acute blood loss anemia - s/p PRBC transfusion - follow Hgb/Hgb ; Hgb = 10 - Follow calcium levels as prbc contain citrate which, in turn, would bind calcium ions in the serum #DVT prophylaxsis - SCDs Visit type - Emergency Visit Emergency Visit: Yes ED Registration Date: 06/15/20 Care time: The patient presented to the Emergency Department on the above date and was hospitalized for further evaluation of their emergent condition. - New Patient This patient is new to me today: Yes Date on this admission: 06/21/20 - Critical Care Critical Care patient: No - Discharge Referral Referred to [facility] Med P.C.: No
[2020-06-22] MEDS: ceFAZolin 2 GRAM PREMIX BAG IVPB SCH ×2 (01:55→12:30)
[2020-06-22] MEDS ORDERED: REGADENOSON 0.4 MG/5 ML PRE-FILLED SYRINGE IVPUSH ONE ×2 (09:41→10:15)
--- NOTE | 2020-06-22 10:08 | PN ---
Progress Note, Physician History of Present Illness: Ms. Feliciano is a 49 yr old woman with no known significant PMHx is now transferred to telemetry after developing lightheadedness followed by sharp chest pain after undergoing open abdominal myomectomy for leiomyoma today. Hb was noted to have decreased from 12.7 to 9.4. Pt was exercising regularly prior to the surgery, and denies having had chest pain before. No hx cigarettes. - Current Medication List Current Medications: Active Medications Acetaminophen (Tylenol -) 650 mg PO Q4H PRN PRN Reason: FEVER Last Admin: 06/21/20 20:12 Dose: 650 mg Documented by: Ascorbic Acid (Vitamin C -) 250 mg PO DAILY [facility] Last Admin: 06/21/20 09:36 Dose: 250 mg Documented by: Bisacodyl (Dulcolax -) 10 mg PO ONCE PRN PRN Reason: CONSTIPATION Cefazolin Sodium/Dextrose (Ancef 2 Gm Premixed Ivpb -) 2 gm IVPB Q8H-IV [facility] Last Admin: 06/22/20 01:55 Dose: 2 gm Documented by: Docusate Sodium (Colace -) 100 mg PO TID PRN PRN Reason: CONSTIPATION Ferrous Sulfate (Feosol -) 325 mg PO DAILY [facility] Last Admin: 06/21/20 09:36 Dose: 325 mg Documented by: Lactated Ringer's (Lactated Ringers Solution) 1,000 ml in 1,000 mls @ 42 mls/hr IV ASDIR [facility] Last Admin: 06/21/20 15:10 Dose: 42 mls/hr Documented by: Ondansetron HCl (Zofran Injection) 4 mg IVPUSH Q4H PRN PRN Reason: NAUSEA AND/OR VOMITING Ondansetron HCl (Zofran Injection) 4 mg IVPUSH Q6H PRN PRN Reason: NAUSEA AND/OR VOMITING Potassium Phos/Sodium Phos (Phos-Nak Packet -) 1 packet PO DAILY [facility] Last Admin: 06/21/20 09:36 Dose: 1 packet Documented by: Simethicone (Mylicon -) 80 mg PO Q4H PRN PRN Reason: GAS - Objective Vital Signs: Vital Signs Temperature 98.2 F 06/22/20 06:00 Pulse Rate 96 H 06/22/20 06:00 Respiratory Rate 18 06/22/20 06:00 Blood Pressure 110/66 06/22/20 06:00 O2 Sat by Pulse Oximetry (%) 100 06/22/20 06:00 Eyes: Yes: WNL, Conjunctiva Clear, EOM Intact HENT: Yes: WNL, Atraumatic, Normocephalic Neck: Yes: WNL, Supple, Trachea Midline Cardiovascular: Yes: WNL, Regular Rate and Rhythm Respiratory: Yes: WNL, Regular, CTA Bilaterally Gastrointestinal: Yes: WNL, Normal Bowel Sounds Genitourinary: Yes: WNL Musculoskeletal: Yes: WNL Extremities: Yes: WNL Edema: No Integumentary: Yes: WNL Neurological: Yes: WNL, Alert, Oriented ...Motor Strength: WNL Psychiatric: Yes: WNL Labs: CBC, BMP 06/21/20 17:25 06/20/20 05:35 Assessment/Plan 1. Lightheadedness and sharp chest pain post-myomectomy for leiomyoma 2. Acute blood loss anemia post open abdominal myomectomy post pRBC transfusion 3. Diastolic LV dysfunction 4. New EKG changes post-op: sinus tachycardia; T wave inversions throughout precordial leads; r/o ischemia 5. Hypocalcemia; hypophosphatemia Plan: TNI < 0.02 x 3 EKG 06/19/2020: NSR; nonspecific T wave changes V1-3 same as previous Telemetry: no arrhythmias Lipids and HGBA1c WNL; mildly elevated TSH, with normal free T4. ECHO: normal LVEF; abnormal diastolic compliance; mild TR and OK MIBI stress test negative.
--- NOTE | 2020-06-22 10:48 | PN ---
Progress Note (short form) - Note Progress Note: POD 7, s/p open abdominal myomectomy Pt seen and examined. States she is doing well, no issues overnight. Overall she feels well and denies any CP, SOB, N/V, fever, chills , dizziness or blurred vision. She Has been oob without issue. Tolerating regular diet and voiding without issue. She is scheduled for her stress test this morning. Vital Signs Temp 99.2 F 06/19/20 09:02 Pulse 98 H 06/19/20 09:02 Resp 18 06/19/20 09:02 BP 126/78 06/19/20 09:02 Pulse Ox 100 06/19/20 09:02 Intake & Output 06/18/20 06/18/20 06/19/20 11:59 23:59 11:59 Intake Total 1165 2995 750 Balance 1165 2995 750 Intake: IV 875 1775 700 Lactated Ringers Solution 1150 700 1,000 ml @ 100 mls/hr IV ASDIR [facility] Rx#: [id number] Lactated Ringers Solution 875 625 1,000 ml @ 125 mls/hr IV ASDIR [facility] Rx#: [id number] IVPB 50 100 50 Oral 240 1120 0 Other: Voiding Method Toilet Toilet # Unmeasured Voids Void 1 1 1 Bowel Movement Yes # Bowel Movements 1 CBC, BMP 06/19/20 05:53 06/18/20 05:48 Gen: awake, alert, nad Resp: unlabored on RA Abdo: soft, distended, + bowel sounds, incision c/d/i with steri-strips overlying, no erythema or drainage. A/P: 49 y/o F w/ PMhx leiomyomas now POD 4, s/p open abdominal myomectomy complicated by acute blood loss anemia. Pt tachy to 126 again this AM, BP low 100s systolic. Extensive conversation between pt and Dr Graves regarding need for additional blood transfusion. Pt very resistant to additional transfusion due to continued concern for transmission of communicable diseases. Pt made aware she is persistently tachycardic/hypotensive. Pt inquired about risks of not receiving transfusion. All risks discussed with pt at length, pt verbalized understanding. Pt agrees to one additional unit of pRBCs. Will continue to monitor. stress test monday per cardiology medicine following-d/w attending Dr Mace pt seen and examined with attending Dr Graves
--- NOTE | 2020-06-22 10:51 | PN ---
Progress Note (SOAP) - Subjective Chief Complaint: Pt found sitting in cardiology - Current Medications Current Medications: Active Medications Acetaminophen (Tylenol -) 650 mg PO Q4H PRN PRN Reason: FEVER Last Admin: 06/21/20 20:12 Dose: 650 mg Documented by: Ascorbic Acid (Vitamin C -) 250 mg PO DAILY [facility] Last Admin: 06/21/20 09:36 Dose: 250 mg Documented by: Bisacodyl (Dulcolax -) 10 mg PO ONCE PRN PRN Reason: CONSTIPATION Cefazolin Sodium/Dextrose (Ancef 2 Gm Premixed Ivpb -) 2 gm IVPB Q8H-IV [facility] Last Admin: 06/22/20 01:55 Dose: 2 gm Documented by: Docusate Sodium (Colace -) 100 mg PO TID PRN PRN Reason: CONSTIPATION Ferrous Sulfate (Feosol -) 325 mg PO DAILY [facility] Last Admin: 06/21/20 09:36 Dose: 325 mg Documented by: Lactated Ringer's (Lactated Ringers Solution) 1,000 ml in 1,000 mls @ 42 mls/hr IV ASDIR [facility] Last Admin: 06/21/20 15:10 Dose: 42 mls/hr Documented by: Ondansetron HCl (Zofran Injection) 4 mg IVPUSH Q4H PRN PRN Reason: NAUSEA AND/OR VOMITING Ondansetron HCl (Zofran Injection) 4 mg IVPUSH Q6H PRN PRN Reason: NAUSEA AND/OR VOMITING Potassium Phos/Sodium Phos (Phos-Nak Packet -) 1 packet PO DAILY [facility] Last Admin: 06/21/20 09:36 Dose: 1 packet Documented by: Simethicone (Mylicon -) 80 mg PO Q4H PRN PRN Reason: GAS - Objective Vital Signs: Vital Signs Temperature 98.2 F 06/22/20 06:00 Pulse Rate 96 H 06/22/20 06:00 Respiratory Rate 18 06/22/20 06:00 Blood Pressure 110/66 06/22/20 06:00 O2 Sat by Pulse Oximetry (%) 100 06/22/20 06:00 Constitutional: Yes: Well Nourished, No Distress Gastrointestinal: Yes: WNL, Soft Edema: No Wound/Incision: Yes: Clean/Dry, Steri Strips Psychiatric: Yes: WNL, Alert, Oriented Labs Lab Results: CBCD WBC 9.6 K/mm3 (4.0-10.0) 06/21/20 17:25 RBC 3.87 M/mm3 (3.60-5.2) 06/21/20 17:25 Hgb 11.8 GM/dL (10.7-15.3) 06/21/20 17:25 Hct 35.9 % (32.4-45.2) 06/21/20 17:25 MCV 92.7 fl (80-96) 06/21/20 17:25 MCHC 32.8 g/dl (32.0-36.0) 06/21/20 17:25 RDW 15.1 % (11.6-15.6) 06/21/20 17:25 Plt Count 231 K/MM3 (134-434) D 06/21/20 17:25 MPV 8.3 fl (7.5-11.1) 06/21/20 17:25 CMP Sodium 141 mmol/L (136-145) 06/20/20 05:35 Potassium 3.7 mmol/L (3.5-5.1) 06/20/20 05:35 Chloride 106 mmol/L (98-107) 06/20/20 05:35 Carbon Dioxide 28 mmol/L (21-32) 06/20/20 05:35 Anion Gap 6 MMOL/L (8-16) L 06/20/20 05:35 BUN 6.5 mg/dL (7-18) L 06/20/20 05:35 Creatinine 0.6 mg/dL (0.55-1.3) 06/20/20 05:35 Random Glucose 88 mg/dL (74-106) 06/20/20 05:35 Calcium 8.3 mg/dL (8.5-10.1) L 06/20/20 05:35 Total Bilirubin 0.6 mg/dL (0.2-1) 06/18/20 05:48 AST 46 U/L (15-37) H 06/18/20 05:48 ALT 16 U/L (13-61) 06/18/20 05:48 Alkaline Phosphatase 46 U/L (45-117) 06/18/20 05:48 Total Protein 5.4 g/dl (6.4-8.2) L 06/18/20 05:48 Albumin 2.5 g/dl (3.4-5.0) L 06/18/20 05:48 CARDIAC ENZYMES Creatine Kinase 1362 U/L (26-192) H 06/17/20 05:48 Troponin I < 0.02 ng/ml (0.00-0.05) 06/17/20 05:48 Assessment/Plan SP myomectomy Anemia sp blood transfusion post ekg changes LV dysfunction Hypocalcemia low 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
--- NOTE | 2020-06-22 10:59 | DS ---
"Physical Exam: SUBJECTIVE: POD 7, s/p open abdominal myomectomy. Patient seen and examined on AM rounds. Pt seen and examined. States she is doing well, no issues overnight. Overall she feels well and denies any CP, SOB, N/V, fever, chills , dizziness or blurred vision. She Has been oob without issue. Tolerating regular diet and voiding without issue. She is scheduled for her stress test this morning. OBJECTIVE: Vital Signs Period Temp Pulse Resp BP Sys/Bill Pulse Ox Last 24 Hr 98.1 F-98.8 F 81-98 18-19 109-127/61-89 100-100 PHYSICAL EXAM GENERAL: The patient is awake, alert, and fully oriented, in no acute distress. HEAD: Normal with no signs of trauma. EYES: PERRL, sclera anicteric, conjunctiva clear. NECK: Trachea midline, full range of motion, supple. LUNGS: Unlabored resp on RA, no accessory muscle use. ABDOMEN: soft, slightly distended, + bowel sounds, incision c/d/i with steri- strips overlying, no erythema or drainage. EXTREMITIES: + pulses, warm, well-perfused, no edema. NEUROLOGICAL: Cranial nerves II through XII grossly intact. Normal speech, gait not observed. PSYCH: Normal mood, normal affect. SKIN: Warm, dry, normal turgor, no rashes or lesions noted. LABS Laboratory Results - last 24 hr 06/21/20 17:25 WBC 9.6 RBC 3.87 Hgb 11.8 Hct 35.9 MCV 92.7 MCH 30.4 MCHC 32.8 RDW 15.1 Plt Count 231 D MPV 8.3 Absolute Neuts (auto) 6.8 Neutrophils % 70.6 Lymphocytes % 14.7 Monocytes % 11.3 H Eosinophils % 2.8 Basophils % 0.6 Nucleated RBC % 0 HOSPITAL COURSE: Date of Admission:06/15/20 Patient was admitted s/p abdominal myomectomy on 06/15/20. On POD #1 she had a rapid response after patient had witnessed syncopal event after getting at of bed with her nurse. Patient started to feel light headed & became diaphoretic and RR was called. When team got to the room the patient was getting back into bed. Vitals were taken. She was tachycardic, responsive, no SOB. Patient just felt a little light headed still but in bed reported feeling better already. Later that same afternoon the patient c/o substernal chest pain radiating to LUE after being administered oral pain medication.- STAT: cardiac and medicine c onsults, EKG and CBC were obtained. POD #2 patient was noted to have a significant drop in H&H and was transfussed 2 units PRBCs (1 unit POD #2 and 1 unit POD #3). Cardiology workup revealed Diastolic LV dysfunction and new EKG changes post-op: sinus tachycardia; T wave inversions throughout precordial leads; r/o ischemia, Hypocalcemia; hypophosphatemia, ECHO: normal LVEF; abnormal diastolic compliance; mild TR and IN. On POD#7 the patient underwent a stress test which revealed: Overall negative pharmacologic nuclear stress. Normal myocardial SPECT scan, Normal Left ventricular contraction with LV EF of 76% post Lexiscan and 79% as rest. The patient was cleared for d/c home. Date of Discharge: 06/22/20 Minutes to complete discharge: 25 Discharge Summary Problems reviewed: Yes Reason For Visit: LEIOMYOMATOUS UTERUS Current Active Problems Acute blood loss anemia (Acute) Chest pain (Acute) S/P myomectomy (Acute) Condition: Good - Instructions Diet, Activity, Other Instructions: Dr. Neha Galdamez Costume Shop Manager discharge instructions Physical activity Resume your normal everyday activity as tolerated no heavy lifting or exercise until seen by your surgeon. You may walk unlimited lalit of and climb stairs. You may resume driving the car when you feel safe and comfortable behind the wheel and no longer taking narcotics. No sexual activity as instructed by Dr. Galdamez. Wound care If you have a bandage, leave it on, and keep dry for 48-hours. After that time discard the outer bandage. If they are tapes on the skin under the out of bandage leave them in place. They will peel off in the next 7 to 10 days. Do Not Peel them off. You may shower the day after surgery but do not submerge the incisions. If there are tapes present on the skin, you may shower over them. Do not apply lotion or ointments to incision. Diet There are no dietary restrictions. Eat healthy, high-fiber foods. Drink 6 to 8 glasses of liquid each day. This will assist in keeping your bowels are regular. Pain management You may take Tylenol or acetaminophen or Ibuprofen (for example, Motrin, Advil etc.) from my pain prescription medication is ordered should be taken as prescribed for moderate to severe pain. Call Dr. Galdamez for any of the following: Severe pain not relieved by medication Fever of 101 or higher Excessive bleeding or drainage on dressing Inability to urinate If you experience any chest pain or shortness of breath please seek emergency treatment. Call the office at [phone] for an appointment in seven days. Follow up with your wood treating inspector as outpatient iSTOP The Drug Utilization Report below displays all of the controlled substance prescriptions, if any, that your patient has filled in the last twelve months. The information displayed on this report is compiled from pharmacy submissions to the Department, and accurately reflects the information as submitted by the pharmacies. This report was requested by: Dalton Erickson | Reference #: [id number] Referrals: Neha Galdamez MD [Staff Physician] - Luis Robison MD [Staff Physician] - 1 Week Disposition: HOME - Home Medications Comprehensive Discharge Medication List: Ambulatory Orders Amoxicillin - [Amoxicillin 500mg Capsule -] 500 mg PO BID 06/11/20 Problem List - Problems (1) S/P myomectomy Assessment/Plan: A/P: 49 y/o F w/ PMhx leiomyomas now POD 7, s/p open abdominal myomectomy complicated by acute blood loss anemia. Patient stable and cleared for d/c after cardiology work up. Problems reviewed: Yes Code(s): Z98.890 - OTHER SPECIFIED POSTPROCEDURAL STATES This patient is new to me today: Yes Date on this admission: 06/22/20 Emergency Visit: No Critical Care patient: No - Discharge Referral Referred to [facility] No"
--- NOTE | 2020-06-22 11:56 | CONSULT ---
Consult - text type - Consultation Consultation Note: F/u: Negative pharmacologic stress test. Cleared from medicine for d/c S: Follow-up consultation for a 49yo F with no reported history who underwent open myomectromy with Dr. Galdamez on 06/15/2020. Patient post-operatively had a syncopal event and had substernal pain with radiation to extremities. Cardiology and medicine were consulted. Patient underwent echocardiogram which revealed diastolic LV dysfunction alongside of new ECG changes. Patient is undergoing stress testing today due to a moderate pre-test probability. O: Vital Signs Temperature 98.2 F 06/22/20 06:00 Pulse Rate 96 H 06/22/20 06:00 Respiratory Rate 18 06/22/20 06:00 Blood Pressure 110/66 06/22/20 06:00 O2 Sat by Pulse Oximetry (%) 100 06/22/20 06:00 PE: Gen: NAd, awake, alert, sitting up at bedside HEENT: NC/At, COL[place], EOMI, MMM Lung: CTA b/l no wheezes or rales Card: RRR no murmurs appreciated Abd: Soft, Nt/ND EXT: No edema CBC, BMP 06/21/20 17:25 06/20/20 05:35 Active Medications Acetaminophen (Tylenol -) 650 mg PO Q4H PRN PRN Reason: FEVER Last Admin: 06/21/20 20:12 Dose: 650 mg Documented by: Ascorbic Acid (Vitamin C -) 250 mg PO DAILY [facility] Last Admin: 06/21/20 09:36 Dose: 250 mg Documented by: Bisacodyl (Dulcolax -) 10 mg PO ONCE PRN PRN Reason: CONSTIPATION Cefazolin Sodium/Dextrose (Ancef 2 Gm Premixed Ivpb -) 2 gm IVPB Q8H-IV [facility] Last Admin: 06/22/20 01:55 Dose: 2 gm Documented by: Docusate Sodium (Colace -) 100 mg PO TID PRN PRN Reason: CONSTIPATION Ferrous Sulfate (Feosol -) 325 mg PO DAILY [facility] Last Admin: 06/21/20 09:36 Dose: 325 mg Documented by: Lactated Ringer's (Lactated Ringers Solution) 1,000 ml in 1,000 mls @ 42 mls/hr IV ASDIR [facility] Last Admin: 06/21/20 15:10 Dose: 42 mls/hr Documented by: Ondansetron HCl (Zofran Injection) 4 mg IVPUSH Q4H PRN PRN Reason: NAUSEA AND/OR VOMITING Ondansetron HCl (Zofran Injection) 4 mg IVPUSH Q6H PRN PRN Reason: NAUSEA AND/OR VOMITING Potassium Phos/Sodium Phos (Phos-Nak Packet -) 1 packet PO DAILY [facility] Last Admin: 06/21/20 09:36 Dose: 1 packet Documented by: Simethicone (Mylicon -) 80 mg PO Q4H PRN PRN Reason: GAS A/P: Chest pain with questionable syncopal event Acute blood loss anemia POD 7 Open Myomectomy 2/2 to leiomyomas Hypocalcemia --Given moderate pre-test probability and new ischemic changes on ECG stress today today --Results pending and f/u cardiology --Blood loss anemia resolving after transfusions; yesterday's H/H with continued upward trend --Would recommend outpatient f/u CBC with PMD for assessment of normalized H/H --Hypocalemia improving and likely related to the transfusions given citrate; asymptomatic currently Clearance pending stress results DO Evelyn Anton IM
[2020-06-22] MEDS ORDERED: PT OWN MED DRAWER 7, Y5N ONE (12:17)
[2020-06-22] MEDS: NAPH,MB-DB/K PH,MBDB POWDER PACKET PO SCH (12:30)
[2020-06-22] MEDS: FERROUS SO4 325 MG TABLET (FP) PO SCH (12:30)
[2020-06-22] MEDS: ASCORBIC ACID 250 MG TABLET (FP) PO SCH (12:30)
[2020-06-22 13:02] VITALS: BP 112/78; PULSE 92; TEMP 98.6
--- NOTE | 2020-06-22 22:07 | EKG ---
Test Reason : Blood Pressure : / mmHG Vent. Rate : 103 BPM Atrial Rate : 103 BPM P-R Int : 126 ms QRS Dur : 078 ms QT Int : 324 ms P-R-T Axes : 038 018 045 degrees QTc Int : 424 ms SINUS TACHYCARDIA T WAVE ABNORMALITY, CONSIDER ANTERIOR ISCHEMIA ABNORMAL ECG NO PREVIOUS ECGS AVAILABLE Confirmed by KENISHA QUAN MD ([id number]) on 06/22/2020 10:06:57 PM Referred By: Neha Galdamez Confirmed By:KENISHA QUAN MD
--- NOTE | 2020-06-24 10:27 | EKG ---
Test Reason : Blood Pressure : / mmHG Vent. Rate : 100 BPM Atrial Rate : 100 BPM P-R Int : 136 ms QRS Dur : 082 ms QT Int : 312 ms P-R-T Axes : 040 017 030 degrees QTc Int : 402 ms NORMAL SINUS RHYTHM NONSPECIFIC T WAVE ABNORMALITY ABNORMAL ECG WHEN COMPARED WITH ECG OF 17-JUN-2020 15:03, NO SIGNIFICANT CHANGE WAS FOUND Confirmed by MD Gomez Daniel ([id number]) on 06/24/2020 10:27:20 AM Referred By: Neha Galdamez Confirmed By:Yrn Gomez MD
== END 2020-06-22 16:28 | disposition home or self-care (01) | DRG 742 ==
LOC: JASUSAT 04:39 → EDSTATUS 07:30 → JASUSAT 09:59 → J3W 10:00 → JASUSAT 12:33 → J3W 12:34 → JASUSAT 12:34 → J4S 06-16 21:06
PROVIDERS: ADMIT Obstetrics & Gynecology; ATTEND Obstetrics & Gynecology
PROC: 0UB90ZZ Excision of Uterus, Open Approach (ICD-10-PCS; principal; 2020-06-15 07:30)
PROC: 30233N1 Transfusion of Nonautologous Red Blood Cells into Peripheral Vein, Percutaneous Approach (ICD-10-PCS; 2020-06-16)
DX: D25.0 Submucous leiomyoma of uterus (principal); D62 Acute posthemorrhagic anemia; D25.2 Subserosal leiomyoma of uterus; I95.1 Orthostatic hypotension; R07.89 Other chest pain; E83.51 Hypocalcemia; E83.39 Other disorders of phosphorus metabolism; R32 Unspecified urinary incontinence
CPT/HCPCS: 36415; 36430; 78452-TC; 80048; 80053; 80061; 82550; 82553; 82962; 83036; 83721; 83735; 84100; 84436; 84443; 84484; 84703; 85025; 85027; 86850; 86900; 86901; 86922; 88305-TC; 93005; 93010; 93017; 93306-TC; 94010; 94760; A9502; J1644; J2785; P9058

== ENCOUNTER 2023-01-09 07:44 | Day surgery (SDC) | payer OTHER ==
[2023-01-06 10:05] VITALS: BMI 22.6
[2023-01-09] MEDS ORDERED: LIDOCAINE HCL/PF 2% SDV 5ML VIAL ONE (07:46)
[2023-01-09] MEDS ORDERED: PROPOFOL 120 ML ONE (07:46)
[2023-01-09 08:30] VITALS: RESP 16
[2023-01-09 08:56] VITALS: PULSE 71; TEMP 96.9
[2023-01-09 09:26] VITALS: BP 102/60
== END 2023-01-09 09:25 | disposition home or self-care (01) ==
LOC: FASU-ENDO 07:44
PROVIDERS: ATTEND Internal Medicine Gastroenterology
PROC: 0DJD8ZZ Inspection of Lower Intestinal Tract, Via Natural or Artificial Opening Endoscopic (ICD-10-PCS; principal; 2023-01-09 08:28)
DX: Z12.11 Encounter for screening for malignant neoplasm of colon (principal)